=== PATIENT | female | born 1940 | race African-American/Black ===

== ENCOUNTER 2019-11-05 17:00 | Emergency (ER) | payer BC, MEDICAID ==
[~2019-11-05] VITALS: Ht 167.6 cm; Wt 90.0 kg
[2019-11-05 18:05] VITALS: BP 140/100
== END 2019-11-05 21:22 | disposition left against medical advice (07) ==
LOC: ER 17:00
DX: R51 Headache (principal); Z53.21 Procedure and treatment not carried out due to patient leaving prior to being seen by health care provider

== ENCOUNTER 2024-04-11 17:28 | Inpatient (IN) | payer MEDICARE, MEDICAID ==
[~2024-04-11] VITALS: Ht 160 cm; Wt 66.4 kg
[2024-04-11] MEDS: ONDANSETRON HCL 4MG/2ML INJ IV ONE (18:28)
[2024-04-11] MEDS: ACETAMINOPHEN 325MG TABLET PO ONE (18:28)
[2024-04-11 18:37] LABS: HEMATOCRIT. 28.8 % (36.0-48.0); HEMOGLOBIN. 9.5 g/dL (12.0-16.0); MEAN CORPUSCULAR HEMOGLOBIN 29.3 pg (28.0-32.0); MEAN CORPUSCULAR HGB CONC 32.8 g/dL (31.0-37.0); MEAN CORPUSCULAR VOLUME 89.5 fL (81.0-99.0); MEAN PLATELET VOLUME 8.9 fl (7.4-10.4); PLATELET 116 x1000/uL (130-400); RED BLOOD CELL COUNT 3.22 mill/uL (4.2-5.4); RED CELL DISTRIBUTION WIDTH 19.9 % (11.6-14.6); WHITE BLOOD COUNT 19.1 x1000/uL (4.5-11.0)
[2024-04-11 18:38] LABS: DIFFERENTIAL COMMENT 1
[2024-04-11 18:46] LABS: CHLORIDE 111 mEq/L (98-107); POTASSIUM 3.4 mEq/L (3.5-5.1); SODIUM 139 mEq/L (136-145)
[2024-04-11 18:47] LABS: CARBON DIOXIDE 16 mEq/L (21-32)
[2024-04-11 18:52] LABS: CREATININE 3.3 mg/dL (0.6-1.0); GLUCOSE 132 mg/dL (70-105); UREA NITROGEN BLOOD 52 mg/dL (9-23)
[2024-04-11 18:53] LABS: ALANINE AMINOTRANSFERASE < 7 IU/L (10-49); ASPARTATE AMINOTRANSFERASE 17 IU/L (<34); TROPONIN I HIGH SENSITIVITY 35 ng/L (3.0-34)
[2024-04-11 18:54] LABS: ALBUMIN 2.7 g/dL (3.2-4.8); BILIRUBIN TOTAL 0.3 mg/dL (0.1-1.0); PROTEIN TOTAL 6.2 g/dL (6.0-8.3)
[2024-04-11] MEDS ORDERED: LACTATED RINGERS 1,000 ML IV SCH (19:00)
[2024-04-11] MEDS: METRONIDAZOLE 500 MG PREMIX 100 ML IV ONE (19:00)
[2024-04-11] MEDS ORDERED: CEFEPIME 2GM IN DEXT 5% 100ML IV ONE (19:00)
[2024-04-11] MEDS: VANCOMYCIN 1.5GM/250ML 250 ML IV SCH (19:00)
[2024-04-11] MEDS ORDERED: CEFEPIME 2GM/100ML 100 ML IV NR (19:15)
[2024-04-11 19:31] LABS: ANISOCYTOSIS 1+; PLATELET ESTIMATE DECREASED
[2024-04-11] MEDS ORDERED: MORPHINE SULFATE 2 MG/ML INJ (NOT FOR IM USE) IV PRN (23:30)
[2024-04-11] MEDS: IOHEXOL-300 100 ML BOTTLE ONE (23:54)
[2024-04-12] MEDS: METRONIDAZOLE 500 MG PREMIX 100 ML IV NR (01:00)
[2024-04-12] MEDS: CEFEPIME 2GM/100ML 100 ML IV NR (01:00)
[2024-04-12 08:42] LABS: CLARITY URINE CLOUDY (CLEAR); COLOR URINE YELLOW (YELLOW); GLUCOSE URINE NEGATIVE (NEGATIVE); KETONES URINE NEGATIVE (NEGATIVE); LEUKOCYTE ESTERASE URINE TRACE (NEGATIVE); NITRITE URINE NEGATIVE (NEGATIVE); OCCULT BLOOD URINE 1+ (NEGATIVE); PH URINE 5.5 (4.5-8.0); PROTEIN URINE 3+ (NEGATIVE); SPECIFIC GRAVITY URINE 1.012 (1.005-1.030); UROBILINOGEN URINE 0.2 E.U./dL (0.2-1.0)
[2024-04-12 08:47] LABS: HEMATOCRIT. 25.4 % (36.0-48.0); HEMOGLOBIN. 8.1 g/dL (12.0-16.0); MEAN CORPUSCULAR HEMOGLOBIN 29.2 pg (28.0-32.0); MEAN CORPUSCULAR HGB CONC 32.1 g/dL (31.0-37.0); MEAN CORPUSCULAR VOLUME 91.2 fL (81.0-99.0); MEAN PLATELET VOLUME 8.9 fl (7.4-10.4); PLATELET 101 x1000/uL (130-400); RED BLOOD CELL COUNT 2.79 mill/uL (4.2-5.4); RED CELL DISTRIBUTION WIDTH 19.8 % (11.6-14.6); WHITE BLOOD COUNT 14.6 x1000/uL (4.5-11.0)
[2024-04-12 08:48] LABS: DIFFERENTIAL COMMENT 1
[2024-04-12 08:50] LABS: CHLORIDE 111 mEq/L (98-107); POTASSIUM 3.5 mEq/L (3.5-5.1); SODIUM 139 mEq/L (136-145)
[2024-04-12 08:51] LABS: CALCIUM 7.6 mg/dL (8.7-10.4); CARBON DIOXIDE 17 mEq/L (21-32)
[2024-04-12 08:53] LABS: WBC URINE 15-25 /hpf (0-2)
[2024-04-12 08:54] LABS: BACTERIA URINE 1+; YEAST URINE NONE SEEN
[2024-04-12 08:56] LABS: CREATININE 3.3 mg/dL (0.6-1.0); GLUCOSE 107 mg/dL (70-105); UREA NITROGEN BLOOD 52 mg/dL (9-23)
[2024-04-12 08:56] LABS: SQUAMOUS EPITHELIAL CELL URINE NONE SEEN /lpf (RARE/1+)
[2024-04-12 08:59] LABS: PHOSPHORUS 3.7 mg/dL (2.5-4.9)
[2024-04-12] MEDS: FAMOTIDINE 20MG/2ML VIAL IV SCH (09:00)
[2024-04-12] MEDS: CEFTRIAXONE 1GM/50ML 50 ML IV SCH (09:00)
[2024-04-12] MEDS: SODIUM BICARBONATE 100 MEQ in DEXTROSE 5% WATER 900 ML IV SCH ×3 (11:00→16:19)
[2024-04-12 11:17] LABS: ANISOCYTOSIS 2+; PLATELET ESTIMATE DECREASED
[2024-04-12 12:40] LABS: CREATINE KINASE 22 IU/L (34-145)
[2024-04-12 14:04] VITALS: BP 140/53; PULSE 107; RESP 22; TEMP 36.418
[2024-04-12] MEDS ORDERED: NALOXONE HCL 0.4MG/ML VIAL IV PRN (15:00)
[2024-04-12 15:37] VITALS: BP 140/53; PULSE 107; RESP 22; TEMP 36.33624; O2SAT 90
[2024-04-12 16:00] VITALS: BP 126/70; PULSE 73; RESP 18; TEMP 35.72508; O2SAT 90
[2024-04-12] MEDS: AZITHROMYCIN 500MG/250ML 250 ML IV SCH (16:22)
[2024-04-12 20:00] VITALS: BP 135/81; PULSE 111; RESP 16; TEMP 35.89176; O2SAT 93
[2024-04-12] MEDS ORDERED: CEFEPIME 1GM IN DEXT 5% 50ML IV SCH (20:00)
[2024-04-12] MEDS: CEFEPIME 1GM/50ML 50 ML IV SCH (22:05)
[2024-04-13] VITALS: BP 149/73; PULSE 102; RESP 17; TEMP 36.05844; O2SAT 100
[2024-04-13 08:00] VITALS: BP 137/67; PULSE 103; RESP 18; TEMP 36.05844
[2024-04-13] MEDS ORDERED: CEFTRIAXONE 1GM/50ML 50 ML IV SCH (09:00)
[2024-04-13 12:00] VITALS: BP 157/84; PULSE 105; RESP 20; TEMP 36.00288; O2SAT 80
[2024-04-13] MEDS: IPRATROPIUM/ALBUTEROL 0.5-3(2.5)MG/3ML NEB HHN ONE (12:00)
[2024-04-13 13:39] LABS: HEMOGLOBIN. 8.5 g/dL (12.0-16.0); MEAN CORPUSCULAR HEMOGLOBIN 29.5 pg (28.0-32.0); MEAN CORPUSCULAR HGB CONC 31.6 g/dL (31.0-37.0); MEAN CORPUSCULAR VOLUME 93.6 fL (81.0-99.0); MEAN PLATELET VOLUME 8.9 fl (7.4-10.4); PLATELET 91 x1000/uL (130-400); RED BLOOD CELL COUNT 2.88 mill/uL (4.2-5.4); RED CELL DISTRIBUTION WIDTH 20.6 % (11.6-14.6); WHITE BLOOD COUNT 12.8 x1000/uL (4.5-11.0)
[2024-04-13 13:44] LABS: DIFFERENTIAL COMMENT 1
[2024-04-13 13:46] LABS: CALCIUM 7.8 mg/dL (8.7-10.4); POTASSIUM 3.7 mEq/L (3.5-5.1)
[2024-04-13 13:52] LABS: CREATININE 3.7 mg/dL (0.6-1.0)
[2024-04-13] MEDS ORDERED: IPRATROPIUM BROMIDE (0.02%) 0.5MG/2.5ML NEB HHN PRN (14:30)
[2024-04-13 14:41] LABS: BG BASE EXCESS -5.9 mmol/L (-2.0-2.0); BG CARBOXYHEMOGLOBIN 0.6 % (0.5-1.5); BG HCO3 ACT 19.2 mmol/L (22.0-26.0); BG METHEMOGLOBIN 0.3 % (0.0-1.5); BG OXYHEMOGLOBIN 95.1 % (94.0-97.0); BG PCO2 36.4 mmHg (35.0-45.0); BG PH 7.341 (7.350-7.450); BG PO2 87.7 mmHg (75.0-100.0); BG SAMPLE SITE RIGHT RADIAL; BG TOTAL HEMOGLOBIN 8.7 g/dL (12.0-18.0); BG VENT MODE MASK - NRB
[2024-04-13 16:00] VITALS: BP 182/97; PULSE 97; RESP 22; TEMP 35.78064; TEMP 36.05844; O2SAT 100
[2024-04-13] MEDS: HYDRALAZINE 20MG/ML VIAL IV PRN (16:38)
[2024-04-13 16:57] LABS: ANISOCYTOSIS 1+; PLATELET ESTIMATE DECREASED
[2024-04-13] MEDS: ACETAMINOPHEN 650MG SUPP PR PRN (18:24)
[2024-04-13 20:00] VITALS: BP 138/86; PULSE 99; RESP 24; TEMP 37.16964; O2SAT 99
[2024-04-13] MEDS: IPRATROPIUM BROMIDE (0.02%) 0.5MG/2.5ML NEB HHN SCH (21:01)
[2024-04-13 21:04] VITALS: PULSE 89; RESP 22; O2SAT 98
[2024-04-14] VITALS (44 sets, daily range): BP systolic 84–170; BP diastolic 54–90; PULSE 77–94; RESP 13–28; TEMP 28.8912–36.9474; O2SAT 84–100
[2024-04-14 08:18] LABS: POTASSIUM 3.7 mEq/L (3.5-5.1)
[2024-04-14 08:19] LABS: CALCIUM 7.7 mg/dL (8.7-10.4)
[2024-04-14 08:20] LABS: HEMATOCRIT. 24.7 % (36.0-48.0); HEMOGLOBIN. 7.7 g/dL (12.0-16.0); MEAN CORPUSCULAR HEMOGLOBIN 29.6 pg (28.0-32.0); MEAN CORPUSCULAR HGB CONC 31.1 g/dL (31.0-37.0); MEAN PLATELET VOLUME 9.3 fl (7.4-10.4); PLATELET 78 x1000/uL (130-400); RED CELL DISTRIBUTION WIDTH 20.3 % (11.6-14.6); WHITE BLOOD COUNT 12.3 x1000/uL (4.5-11.0)
[2024-04-14 08:24] LABS: CREATININE 3.5 mg/dL (0.6-1.0)
[2024-04-14 08:32] LABS: DIFFERENTIAL COMMENT 1
[2024-04-14] MEDS: INSULIN LISPRO 100 UNITS/ML SUBCUT SCH (12:00)
[2024-04-14] MEDS: BLOOD SUGAR DIAGNOSTIC STRIP TEST SCH ×2 (12:00→21:45)
[2024-04-14] MEDS: FUROSEMIDE 40MG TABLET PO NR (12:03)
[2024-04-14] MEDS: FUROSEMIDE 40MG/4ML VIAL IV NR (12:11)
[2024-04-14 12:25] LABS: BG BASE EXCESS -0.3 mmol/L (-2.0-2.0); BG CARBOXYHEMOGLOBIN 0.7 % (0.5-1.5); BG DEOXYHEMOGLOBIN 4.5 % (0.0-5.0); BG FRACTION INSPIRED OXYGEN 28; BG HCO3 ACT 23.8 mmol/L (22.0-26.0); BG METHEMOGLOBIN 0.3 % (0.0-1.5); BG OXYGEN SATURATION 95.5 % (92.0-98.5); BG OXYHEMOGLOBIN 94.5 % (94.0-97.0); BG PCO2 37.4 mmHg (35.0-45.0); BG PH 7.421 (7.350-7.450); BG PO2 79.5 mmHg (75.0-100.0); BG SAMPLE SITE RIGHT RADIAL; BG TOTAL HEMOGLOBIN 16.1 g/dL (12.0-18.0); BG VENT MODE NASAL CANNULA
[2024-04-14 16:00] LABS: PLATELET ESTIMATE DECREASED
[2024-04-14 16:01] LABS: ANISOCYTOSIS 2+
[2024-04-14 19:37] LABS: BG BASE EXCESS -4.7 mmol/L (-2.0-2.0); BG CARBOXYHEMOGLOBIN 0.6 % (0.5-1.5); BG DEOXYHEMOGLOBIN 1.9 % (0.0-5.0); BG HCO3 ACT 21.5 mmol/L (22.0-26.0); BG METHEMOGLOBIN 0.3 % (0.0-1.5); BG OXYGEN SATURATION 98.1 % (92.0-98.5); BG OXYHEMOGLOBIN 97.2 % (94.0-97.0); BG PCO2 44.9 mmHg (35.0-45.0); BG PH 7.298 (7.350-7.450); BG PO2 115.1 mmHg (75.0-100.0); BG TOTAL HEMOGLOBIN 8.1 g/dL (12.0-18.0); BG TOTAL RESPIRATORY RATE 23 b/min; BG VENT MODE MASK - BIPAP
[2024-04-14] MEDS: IPRATROPIUM/ALBUTEROL 0.5-3(2.5)MG/3ML NEB HHN SCH (21:07)
[2024-04-15] VITALS (81 sets, daily range): BP systolic 82–184; BP diastolic 49–102; PULSE 86–118; RESP 14–34; TEMP 36.22512–36.78072; O2SAT 90–100
[2024-04-15] MEDS: NOREPINEPHRINE 8MG/250ML PMX 250 ML IV PRN (04:01)
[2024-04-15 05:47] LABS: POTASSIUM 3.6 mEq/L (3.5-5.1)
[2024-04-15 05:49] LABS: CALCIUM 7.7 mg/dL (8.7-10.4)
[2024-04-15 05:53] LABS: CREATININE 3.6 mg/dL (0.6-1.0)
[2024-04-15 09:19] LABS: BG BASE EXCESS -6.1 mmol/L (-2.0-2.0); BG CARBOXYHEMOGLOBIN 0.7 % (0.5-1.5); BG DEOXYHEMOGLOBIN 0.5 % (0.0-5.0); BG FRACTION INSPIRED OXYGEN 40; BG HCO3 ACT 18.7 mmol/L (22.0-26.0); BG METHEMOGLOBIN 0.2 % (0.0-1.5); BG OXYGEN SATURATION 99.5 % (92.0-98.5); BG OXYHEMOGLOBIN 98.6 % (94.0-97.0); BG PCO2 33.7 mmHg (35.0-45.0); BG PH 7.361 (7.350-7.450); BG PO2 175.8 mmHg (75.0-100.0); BG SAMPLE SITE RIGHT RADIAL; BG TOTAL HEMOGLOBIN 8.1 g/dL (12.0-18.0); BG TOTAL RESPIRATORY RATE 23 b/min; BG VENT MODE MASK - BIPAP
[2024-04-15 09:48] LABS: HEMATOCRIT. 22.3 % (36.0-48.0); HEMOGLOBIN. 7.3 g/dL (12.0-16.0); MEAN CORPUSCULAR HEMOGLOBIN 29.3 pg (28.0-32.0); MEAN CORPUSCULAR HGB CONC 32.8 g/dL (31.0-37.0); MEAN CORPUSCULAR VOLUME 89.2 fL (81.0-99.0); MEAN PLATELET VOLUME 9.8 fl (7.4-10.4); PLATELET 69 x1000/uL (130-400); RED CELL DISTRIBUTION WIDTH 19.4 % (11.6-14.6); WHITE BLOOD COUNT 13.6 x1000/uL (4.5-11.0)
[2024-04-15 09:53] LABS: DIFFERENTIAL COMMENT 1
[2024-04-15 10:58] LABS: ANISOCYTOSIS 1+; PLATELET ESTIMATE DECREASED
[2024-04-15] MEDS: DEXTROSE 50% WATER 50ML SYRINGE IV PRN (11:38)
[2024-04-15] MEDS: DEXTROSE 5% WATER 1,000 ML IV SCH (13:21)
[2024-04-15 13:27] LABS: ALBUMIN 2.7 g/dL (3.2-4.8)
[2024-04-15 13:36] LABS: PREALBUMIN < 5.0 mg/dl (10.0-40.0)
[2024-04-15] MEDS ORDERED: LIDOCAINE HCL 1% 10 MG/ML 10ML VIAL ONE (14:45)
[2024-04-15] MEDS ORDERED: ETOMIDATE 2MG/ML 10ML VIAL IV ONE (14:50)
[2024-04-15] MEDS: PROPOFOL 10MG/ML 100ML 100 ML IV PRN (17:06)
[2024-04-15 18:40] LABS: BG BASE EXCESS -0.5 mmol/L (-2.0-2.0); BG CARBOXYHEMOGLOBIN 0.6 % (0.5-1.5); BG DEOXYHEMOGLOBIN 0.2 % (0.0-5.0); BG FRACTION INSPIRED OXYGEN 100; BG HCO3 ACT 22.3 mmol/L (22.0-26.0); BG METHEMOGLOBIN 0.2 % (0.0-1.5); BG OXYGEN SATURATION 99.8 % (92.0-98.5); BG PCO2 28.9 mmHg (35.0-45.0); BG PH 7.506 (7.350-7.450); BG PO2 352.4 mmHg (75.0-100.0); BG SAMPLE SITE RIGHT RADIAL; BG TOTAL RESPIRATORY RATE 20 b/min
[2024-04-16] VITALS (100 sets, daily range): BP systolic 78–176; BP diastolic 43–107; PULSE 76–112; RESP 15–35; TEMP 35.8362–36.50292; O2SAT 55–100
[2024-04-16] MEDS: IPRATROPIUM BROMIDE (0.02%) 0.5MG/2.5ML NEB HHN SCH (00:12)
[2024-04-16 05:18] LABS: MEAN CORPUSCULAR HEMOGLOBIN 29.2 pg (28.0-32.0); MEAN CORPUSCULAR HGB CONC 33.3 g/dL (31.0-37.0); MEAN CORPUSCULAR VOLUME 87.8 fL (81.0-99.0); MEAN PLATELET VOLUME 9.8 fl (7.4-10.4); PLATELET 58 x1000/uL (130-400); RED BLOOD CELL COUNT 2.39 mill/uL (4.2-5.4); RED CELL DISTRIBUTION WIDTH 18.8 % (11.6-14.6); WHITE BLOOD COUNT 16.1 x1000/uL (4.5-11.0)
[2024-04-16 05:30] LABS: POTASSIUM 3.4 mEq/L (3.5-5.1)
[2024-04-16 05:31] LABS: CALCIUM 7.5 mg/dL (8.7-10.4)
[2024-04-16 05:35] LABS: CREATININE 3.6 mg/dL (0.6-1.0)
[2024-04-16 05:53] LABS: DIFFERENTIAL COMMENT 1
[2024-04-16] MEDS: KCL 20MEQ/100ML PREMIX 100 ML IV NR (09:28)
[2024-04-16] MEDS: MIDODRINE HCL 5MG TABLET PO SCH (09:29)
[2024-04-16 11:22] LABS: BG BASE EXCESS 0.6 mmol/L (-2.0-2.0); BG CARBOXYHEMOGLOBIN 0.9 % (0.5-1.5); BG DEOXYHEMOGLOBIN 1.7 % (0.0-5.0); BG FRACTION INSPIRED OXYGEN 65; BG HCO3 ACT 24.3 mmol/L (22.0-26.0); BG METHEMOGLOBIN 0.1 % (0.0-1.5); BG OXYGEN SATURATION 98.3 % (92.0-98.5); BG OXYHEMOGLOBIN 97.3 % (94.0-97.0); BG PCO2 34.2 mmHg (35.0-45.0); BG PH 7.469 (7.350-7.450); BG PO2 115.2 mmHg (75.0-100.0); BG SAMPLE SITE RIGHT RADIAL; BG TOTAL HEMOGLOBIN 6.4 g/dL (12.0-18.0); BG VENT MODE VENT - AC
[2024-04-16 12:52] LABS: HEPATITIS B SURFACE ANTIGEN NEGATIVE (Negative)
[2024-04-16 13:13] LABS: HEPATITIS A AB IGM NEGATIVE (Negative); HEPATITIS B CORE AB IGM NEGATIVE (Negative)
[2024-04-16 13:14] LABS: HEPATITIS C AB NON REACTIVE (Neg) (Negative)
[2024-04-16 15:29] LABS: ANISOCYTOSIS 2+; PLATELET ESTIMATE DECREASED
[2024-04-16] MEDS: ACETAMINOPHEN 650MG/20.3ML UDC GT PRN (20:41)
[2024-04-16] MEDS: PROPOFOL 10MG/ML 100ML 100 ML IV PRN (22:16)
[2024-04-17] VITALS (106 sets, daily range): BP systolic 87–188; BP diastolic 54–96; PULSE 72–100; RESP 12–31; TEMP 32.61372–37.05852; O2SAT 87–100
[2024-04-17 05:47] LABS: BASOPHILS % 0.2 % (0.0-2.0); EOSINOPHILS % 0.4 % (0.0-5.0); HEMATOCRIT. 23.8 % (36.0-48.0); HEMOGLOBIN. 7.8 g/dL (12.0-16.0); LYMPHOCYTES % 3.2 % (20.0-50.0); MEAN CORPUSCULAR HGB CONC 32.8 g/dL (31.0-37.0); MEAN CORPUSCULAR VOLUME 91.4 fL (81.0-99.0); MEAN PLATELET VOLUME 11.2 fl (7.4-10.4); MONOCYTES % 0.7 % (2.0-8.0); NEUTROPHILS % 95.5 % (40.0-76.0); WHITE BLOOD COUNT 10.4 x1000/uL (4.5-11.0)
[2024-04-17 05:56] LABS: CALCIUM 7.4 mg/dL (8.7-10.4); CHLORIDE 103 mEq/L (98-107); POTASSIUM 3.6 mEq/L (3.5-5.1); SODIUM 137 mEq/L (136-145)
[2024-04-17 05:57] LABS: CARBON DIOXIDE 24 mEq/L (21-32)
[2024-04-17 06:02] LABS: CREATININE 2.8 mg/dL (0.6-1.0); GLUCOSE 101 mg/dL (70-105)
[2024-04-17 06:03] LABS: TRIGLYCERIDE 82 mg/dL (0-150); UREA NITROGEN BLOOD 41 mg/dL (9-23)
[2024-04-17 06:41] LABS: DIFFERENTIAL COMMENT 1
[2024-04-17 06:44] LABS: PLATELET 42 x1000/uL (130-400)
[2024-04-17 07:50] LABS: BG BASE EXCESS -0.2 mmol/L (-2.0-2.0); BG CARBOXYHEMOGLOBIN 0.4 % (0.5-1.5); BG DEOXYHEMOGLOBIN 4.3 % (0.0-5.0); BG FRACTION INSPIRED OXYGEN 80; BG HCO3 ACT 24.4 mmol/L (22.0-26.0); BG METHEMOGLOBIN 0.3 % (0.0-1.5); BG OXYGEN SATURATION 95.7 % (92.0-98.5); BG PCO2 39.5 mmHg (35.0-45.0); BG PH 7.409 (7.350-7.450); BG PO2 73.9 mmHg (75.0-100.0); BG SAMPLE SITE RIGHT RADIAL; BG TOTAL HEMOGLOBIN 10.3 g/dL (12.0-18.0); BG VENT MODE VENT - AC/VC
[2024-04-17] MEDS ORDERED: MEROPENEM 500MG/50ML 50 ML IV SCH (09:00)
[2024-04-17] MEDS: MEROPENEM 1G/100ML 100 ML IV SCH (09:11)
[2024-04-17] MEDS: PROPOFOL 10MG/ML 100ML 100 ML IV PRN (20:02)
[2024-04-18] VITALS (112 sets, daily range): BP systolic 77–170; BP diastolic 45–87; PULSE 78–129; RESP 14–44; TEMP 35.8362–36.78072; O2SAT 88–100
[2024-04-18] MEDS: INSULIN LISPRO 100 UNITS/ML SUBCUT SCH (06:00)
[2024-04-18 06:29] LABS: CALCIUM 7.9 mg/dL (8.7-10.4); POTASSIUM 3.8 mEq/L (3.5-5.1)
[2024-04-18] MEDS: BLOOD SUGAR DIAGNOSTIC STRIP TEST SCH (06:30)
[2024-04-18 06:34] LABS: CREATININE 2.9 mg/dL (0.6-1.0)
[2024-04-18 06:35] LABS: BASOPHILS % 0.3 % (0.0-2.0); EOSINOPHILS % 0.1 % (0.0-5.0); HEMATOCRIT. 31.3 % (36.0-48.0); HEMOGLOBIN. 10.2 g/dL (12.0-16.0); LYMPHOCYTES % 2.6 % (20.0-50.0); MEAN CORPUSCULAR HEMOGLOBIN 29.1 pg (28.0-32.0); MEAN CORPUSCULAR HGB CONC 32.5 g/dL (31.0-37.0); MEAN CORPUSCULAR VOLUME 89.4 fL (81.0-99.0); MEAN PLATELET VOLUME 11.2 fl (7.4-10.4); MONOCYTES % 0.4 % (2.0-8.0); NEUTROPHILS % 96.6 % (40.0-76.0); RED CELL DISTRIBUTION WIDTH 17.5 % (11.6-14.6); WHITE BLOOD COUNT 14.1 x1000/uL (4.5-11.0)
[2024-04-18 06:46] LABS: DIFFERENTIAL COMMENT 1
[2024-04-18 06:48] LABS: PLATELET 36 x1000/uL (130-400)
[2024-04-18] MEDS: MEROPENEM 500MG/50ML IV SCH (11:02)
[2024-04-18] MEDS: PROPOFOL 10MG/ML 100ML 100 ML IV PRN (22:45)
[2024-04-19] VITALS (107 sets, daily range): BP systolic 103–173; BP diastolic 55–100; PULSE 83–123; RESP 0–36; TEMP 36.33624–37.05852; O2SAT 83–99
[2024-04-19 05:52] LABS: CHLORIDE 104 mEq/L (98-107); POTASSIUM 3.6 mEq/L (3.5-5.1); SODIUM 136 mEq/L (136-145)
[2024-04-19 05:53] LABS: CALCIUM 8.4 mg/dL (8.7-10.4); CARBON DIOXIDE 26 mEq/L (21-32)
[2024-04-19 05:57] LABS: BASOPHILS % 0.1 % (0.0-2.0); EOSINOPHILS % 0.1 % (0.0-5.0); HEMATOCRIT. 26.3 % (36.0-48.0); HEMOGLOBIN. 8.6 g/dL (12.0-16.0); LYMPHOCYTES % 1.7 % (20.0-50.0); MEAN CORPUSCULAR HEMOGLOBIN 29.4 pg (28.0-32.0); MEAN CORPUSCULAR HGB CONC 32.8 g/dL (31.0-37.0); MEAN CORPUSCULAR VOLUME 89.5 fL (81.0-99.0); MEAN PLATELET VOLUME 11.6 fl (7.4-10.4); MONOCYTES % 0.6 % (2.0-8.0); NEUTROPHILS % 97.5 % (40.0-76.0); RED BLOOD CELL COUNT 2.94 mill/uL (4.2-5.4); RED CELL DISTRIBUTION WIDTH 17.3 % (11.6-14.6); WHITE BLOOD COUNT 17.3 x1000/uL (4.5-11.0)
[2024-04-19 05:58] LABS: CREATININE 2.3 mg/dL (0.6-1.0); GLUCOSE 89 mg/dL (70-105); TRIGLYCERIDE 138 mg/dL (0-150); UREA NITROGEN BLOOD 34 mg/dL (9-23)
[2024-04-19 06:44] LABS: DIFFERENTIAL COMMENT 1
[2024-04-19 06:47] LABS: PLATELET 29 x1000/uL (130-400)
[2024-04-19] MEDS: MAGNESIUM 2 G PREMIX 50 ML IV SCH (08:25)
[2024-04-19] MEDS: METHYLPREDNISOLONE SOD SUCC 40MG/ML (ACT-O-VIAL) IV SCH (10:06)
[2024-04-20] VITALS (90 sets, daily range): BP systolic 133–178; BP diastolic 56–125; PULSE 94–115; RESP 15–30; TEMP 36.22512–37.05852; O2SAT 95–100
[2024-04-20] MEDS: PROPOFOL 10MG/ML 100ML 100 ML IV PRN (03:53)
[2024-04-20 06:08] LABS: HEMATOCRIT. 29.3 % (36.0-48.0); HEMOGLOBIN. 9.8 g/dL (12.0-16.0); MEAN CORPUSCULAR HEMOGLOBIN 29.7 pg (28.0-32.0); MEAN CORPUSCULAR HGB CONC 33.3 g/dL (31.0-37.0); MEAN CORPUSCULAR VOLUME 89.1 fL (81.0-99.0); MEAN PLATELET VOLUME 9.7 fl (7.4-10.4); RED BLOOD CELL COUNT 3.29 mill/uL (4.2-5.4); RED CELL DISTRIBUTION WIDTH 17.6 % (11.6-14.6); WHITE BLOOD COUNT 18.1 x1000/uL (4.5-11.0)
[2024-04-20 06:20] LABS: DIFFERENTIAL COMMENT 1; PLATELET 26 x1000/uL (130-400)
[2024-04-20 07:16] LABS: NUCLEATED RED BLOOD CELLS 2 /100 WBC; PLATELET ESTIMATE MARKEDLY DECREASED
[2024-04-20 07:17] LABS: ANISOCYTOSIS 2+
[2024-04-20 08:05] LABS: CHLORIDE 101 mEq/L (98-107); SODIUM 135 mEq/L (136-145)
[2024-04-20 08:06] LABS: CALCIUM 8.7 mg/dL (8.7-10.4); CARBON DIOXIDE 25 mEq/L (21-32)
[2024-04-20 08:11] LABS: CREATININE 2.6 mg/dL (0.6-1.0); GLUCOSE 88 mg/dL (70-105); TRIGLYCERIDE 149 mg/dL (0-150); UREA NITROGEN BLOOD 39 mg/dL (9-23)
[2024-04-20 08:13] LABS: PHOSPHORUS 2.3 mg/dL (2.5-4.9)
[2024-04-20] MEDS: DEXTROSE 10% WATER 250 ML IV SCH (11:02)
[2024-04-20 11:28] LABS: BG BASE EXCESS -0.3 mmol/L (-2.0-2.0); BG CARBOXYHEMOGLOBIN 0.7 % (0.5-1.5); BG DEOXYHEMOGLOBIN 3.3 % (0.0-5.0); BG FRACTION INSPIRED OXYGEN 70; BG HCO3 ACT 23.3 mmol/L (22.0-26.0); BG METHEMOGLOBIN 0.3 % (0.0-1.5); BG OXYGEN SATURATION 96.7 % (92.0-98.5); BG OXYHEMOGLOBIN 95.7 % (94.0-97.0); BG PH 7.454 (7.350-7.450); BG PO2 82.4 mmHg (75.0-100.0); BG SAMPLE SITE RIGHT RADIAL; BG TOTAL HEMOGLOBIN 9.3 g/dL (12.0-18.0); BG VENT MODE VENT - AC
[2024-04-21] VITALS (65 sets, daily range): BP systolic 80–226; BP diastolic 51–114; PULSE 56–109; RESP 0–30; TEMP 35.33616–36.83628; O2SAT 94–100
[2024-04-21] MEDS ORDERED: DEXT 10% WATER 1,000 ML IV SCH (02:00)
[2024-04-21] MEDS ORDERED: DEXMEDETOMIDINE 400 MCG/100 ML 100 ML IV PRN (05:30)
[2024-04-21 06:03] LABS: HEMATOCRIT. 27.8 % (36.0-48.0); HEMOGLOBIN. 9.1 g/dL (12.0-16.0); MEAN CORPUSCULAR HEMOGLOBIN 29.3 pg (28.0-32.0); MEAN CORPUSCULAR HGB CONC 32.7 g/dL (31.0-37.0); MEAN CORPUSCULAR VOLUME 89.6 fL (81.0-99.0); MEAN PLATELET VOLUME 10.3 fl (7.4-10.4); RED CELL DISTRIBUTION WIDTH 17.3 % (11.6-14.6)
[2024-04-21 06:13] LABS: POTASSIUM 3.6 mEq/L (3.5-5.1)
[2024-04-21 06:14] LABS: CALCIUM 8.7 mg/dL (8.7-10.4)
[2024-04-21 06:18] LABS: CREATININE 2.3 mg/dL (0.6-1.0)
[2024-04-21 06:21] LABS: PHOSPHORUS 2.2 mg/dL (2.5-4.9)
[2024-04-21] MEDS: DEXMEDETOMIDINE 400 MCG/100 ML 100 ML IV PRN (06:37)
[2024-04-21 06:52] LABS: DIFFERENTIAL COMMENT 1
[2024-04-21 06:54] LABS: PLATELET 20 x1000/uL (130-400)
[2024-04-21 11:13] LABS: NUCLEATED RED BLOOD CELLS 2 /100 WBC; PLATELET ESTIMATE MARKEDLY DECREASED
[2024-04-21 11:14] LABS: ANISOCYTOSIS 2+
[2024-04-21] MEDS: SODIUM PHOSPHATE 10 MMOL in DEXT 5% WATER 246.6667 ML IV NR (11:47)
[2024-04-21] MEDS: IPRATROPIUM BROMIDE (0.02%) 0.5MG/2.5ML NEB HHN SCH (12:20)
[2024-04-22] VITALS (117 sets, daily range): BP systolic 70–240; BP diastolic 53–134; PULSE 64–158; RESP 8–33; TEMP 36.114–36.89184; O2SAT 90–100
[2024-04-22 06:02] LABS: POTASSIUM 4.2 mEq/L (3.5-5.1)
[2024-04-22 06:03] LABS: CALCIUM 8.1 mg/dL (8.7-10.4)
[2024-04-22 06:08] LABS: CREATININE 2.4 mg/dL (0.6-1.0)
[2024-04-22 06:10] LABS: PHOSPHORUS 3.1 mg/dL (2.5-4.9)
[2024-04-22 07:36] LABS: BG BASE EXCESS -0.3 mmol/L (-2.0-2.0); BG CARBOXYHEMOGLOBIN 0.4 % (0.5-1.5); BG DEOXYHEMOGLOBIN 0.9 % (0.0-5.0); BG FRACTION INSPIRED OXYGEN 70; BG HCO3 ACT 23.7 mmol/L (22.0-26.0); BG METHEMOGLOBIN 0.3 % (0.0-1.5); BG OXYGEN SATURATION 99.1 % (92.0-98.5); BG OXYHEMOGLOBIN 98.4 % (94.0-97.0); BG PCO2 35.8 mmHg (35.0-45.0); BG PH 7.438 (7.350-7.450); BG PO2 146.3 mmHg (75.0-100.0); BG SAMPLE SITE RIGHT RADIAL; BG TOTAL HEMOGLOBIN 9.1 g/dL (12.0-18.0); BG VENT MODE VENT - AC
[2024-04-22] MEDS: LACTOBACILLUS GG CAPSULE GT SCH (08:35)
[2024-04-22] MEDS: AMLODIPINE 5MG TABLET PO SCH (08:35)
[2024-04-22 09:57] LABS: HEMATOCRIT. 26.1 % (36.0-48.0); HEMOGLOBIN. 8.3 g/dL (12.0-16.0); MEAN CORPUSCULAR HEMOGLOBIN 29.1 pg (28.0-32.0); MEAN CORPUSCULAR HGB CONC 31.7 g/dL (31.0-37.0); MEAN CORPUSCULAR VOLUME 91.6 fL (81.0-99.0); MEAN PLATELET VOLUME 10.8 fl (7.4-10.4); RED BLOOD CELL COUNT 2.85 mill/uL (4.2-5.4); RED CELL DISTRIBUTION WIDTH 17.2 % (11.6-14.6); WHITE BLOOD COUNT 16.7 x1000/uL (4.5-11.0)
[2024-04-22 10:01] LABS: DIFFERENTIAL COMMENT 1
[2024-04-22 10:02] LABS: PLATELET 12 x1000/uL (130-400)
[2024-04-22 11:09] LABS: ANISOCYTOSIS 1+; PLATELET ESTIMATE MARKEDLY DECREASED
[2024-04-23] VITALS (118 sets, daily range): BP systolic 98–205; BP diastolic 56–110; PULSE 74–123; RESP 12–33; TEMP 36.114–36.89184; O2SAT 86–100
[2024-04-23 05:56] LABS: HEMATOCRIT. 23.6 % (36.0-48.0); HEMOGLOBIN. 7.7 g/dL (12.0-16.0); MEAN CORPUSCULAR HEMOGLOBIN 29.3 pg (28.0-32.0); MEAN CORPUSCULAR HGB CONC 32.6 g/dL (31.0-37.0); MEAN PLATELET VOLUME 10.6 fl (7.4-10.4); RED BLOOD CELL COUNT 2.62 mill/uL (4.2-5.4); RED CELL DISTRIBUTION WIDTH 17.1 % (11.6-14.6); WHITE BLOOD COUNT 15.4 x1000/uL (4.5-11.0)
[2024-04-23 05:57] LABS: POTASSIUM 4.6 mEq/L (3.5-5.1)
[2024-04-23 05:59] LABS: CALCIUM 8.3 mg/dL (8.7-10.4)
[2024-04-23 06:03] LABS: CREATININE 2.4 mg/dL (0.6-1.0)
[2024-04-23 06:06] LABS: PHOSPHORUS 3.3 mg/dL (2.5-4.9)
[2024-04-23 06:10] LABS: DIFFERENTIAL COMMENT 1; PLATELET 11 x1000/uL (130-400)
[2024-04-23 09:07] LABS: BG BASE EXCESS -0.6 mmol/L (-2.0-2.0); BG DEOXYHEMOGLOBIN 5.5 % (0.0-5.0); BG FRACTION INSPIRED OXYGEN 50; BG HCO3 ACT 22.9 mmol/L (22.0-26.0); BG METHEMOGLOBIN 0.3 % (0.0-1.5); BG OXYGEN SATURATION 94.4 % (92.0-98.5); BG OXYHEMOGLOBIN 93.2 % (94.0-97.0); BG PCO2 32.6 mmHg (35.0-45.0); BG PH 7.464 (7.350-7.450); BG PO2 68.1 mmHg (75.0-100.0); BG SAMPLE SITE RIGHT RADIAL; BG TOTAL HEMOGLOBIN 8.7 g/dL (12.0-18.0); BG VENT MODE VENT - AC
[2024-04-23 16:57] LABS: ANISOCYTOSIS 1+; NUCLEATED RED BLOOD CELLS 3 /100 WBC; PLATELET ESTIMATE MARKEDLY DECREASED
[2024-04-24] VITALS (93 sets, daily range): BP systolic 105–173; BP diastolic 56–100; PULSE 76–132; RESP 0–33; TEMP 36.55848–37.503; O2SAT 90–100
[2024-04-24 03:34] LABS: BG BASE EXCESS -1.3 mmol/L (-2.0-2.0); BG CARBOXYHEMOGLOBIN 0.5 % (0.5-1.5); BG DEOXYHEMOGLOBIN 3.4 % (0.0-5.0); BG FRACTION INSPIRED OXYGEN 100; BG HCO3 ACT 24.4 mmol/L (22.0-26.0); BG METHEMOGLOBIN 0.3 % (0.0-1.5); BG OXYGEN SATURATION 96.6 % (92.0-98.5); BG OXYHEMOGLOBIN 95.8 % (94.0-97.0); BG PCO2 45.4 mmHg (35.0-45.0); BG PH 7.349 (7.350-7.450); BG PO2 86.3 mmHg (75.0-100.0); BG SAMPLE SITE LEFT RADIAL; BG TOTAL HEMOGLOBIN 11.3 g/dL (12.0-18.0); BG VENT MODE VENT - AC
[2024-04-24 04:42] LABS: HEMOGLOBIN 9.8 g/dL (12.0-16.0); MEAN CORPUSCULAR HEMOGLOBIN 29.3 pg (28.0-32.0); MEAN CORPUSCULAR HGB CONC 31.7 g/dL (31.0-37.0); MEAN CORPUSCULAR VOLUME 92.5 fL (81.0-99.0); PLATELET 66 x1000/uL (130-400); RED BLOOD CELL COUNT 3.36 mill/uL (4.2-5.4); RED CELL DISTRIBUTION WIDTH 16.3 % (11.6-14.6); WHITE BLOOD COUNT 20.1 x1000/uL (4.5-11.0)
[2024-04-24 04:48] LABS: CHLORIDE 104 mEq/L (98-107); POTASSIUM 5.1 mEq/L (3.5-5.1); SODIUM 138 mEq/L (136-145)
[2024-04-24 04:49] LABS: CALCIUM 8.2 mg/dL (8.7-10.4); CARBON DIOXIDE 24 mEq/L (21-32)
[2024-04-24 04:52] LABS: INR 1.2; PARTIAL THROMBOPLASTIN TIME 28.2 sec (23.4-31.0); PROTHROMBIN TIME 12.8 sec (9.6-11.0)
[2024-04-24 04:54] LABS: CREATININE 2.5 mg/dL (0.6-1.0); GLUCOSE 277 mg/dL (70-105); UREA NITROGEN BLOOD 60 mg/dL (9-23)
[2024-04-24 04:56] LABS: ALANINE AMINOTRANSFERASE < 7 IU/L (10-49); ALBUMIN 2.7 g/dL (3.2-4.8); ASPARTATE AMINOTRANSFERASE 37 IU/L (<34); BILIRUBIN TOTAL 0.3 mg/dL (0.1-1.0); PHOSPHORUS 4.6 mg/dL (2.5-4.9); PROTEIN TOTAL 5.6 g/dL (6.0-8.3)
[2024-04-24] MEDS: METHYLPREDNISOLONE SOD SUCC 125MG/2ML (ACT-O-VIAL) IV SCH (12:28)
[2024-04-24] MEDS: HYDRALAZINE HCL 50MG TABLET PO SCH (13:13)
[2024-04-24 21:34] LABS: BG BASE EXCESS -1.1 mmol/L (-2.0-2.0); BG CARBOXYHEMOGLOBIN 0.4 % (0.5-1.5); BG DEOXYHEMOGLOBIN 7.5 % (0.0-5.0); BG FRACTION INSPIRED OXYGEN 80; BG METHEMOGLOBIN 0.3 % (0.0-1.5); BG OXYGEN SATURATION 92.4 % (92.0-98.5); BG OXYHEMOGLOBIN 91.8 % (94.0-97.0); BG PCO2 41.8 mmHg (35.0-45.0); BG PH 7.377 (7.350-7.450); BG PO2 63.4 mmHg (75.0-100.0); BG SAMPLE SITE LEFT RADIAL; BG TOTAL HEMOGLOBIN 10.2 g/dL (12.0-18.0); BG VENT MODE VENT - AC
[2024-04-24] MEDS ORDERED: FENTANYL 2500MCG/250ML PMX 250 ML IV ONE (23:15)
[2024-04-24] MEDS: LORAZEPAM 2MG/ML INJ IV PRN (23:19)
[2024-04-24] MEDS: FENTANYL CITRATE 2,500 MCG in SODIUM CHLORIDE 0.9% 200 ML IV PRN (23:29)
[2024-04-25] VITALS (107 sets, daily range): BP systolic 86–141; BP diastolic 52–90; PULSE 64–86; RESP 12–31; TEMP 36.114–37.05852; O2SAT 98–100
[2024-04-25 06:36] LABS: POTASSIUM 5.8 mEq/L (3.5-5.1)
[2024-04-25 06:37] LABS: CALCIUM 7.6 mg/dL (8.7-10.4)
[2024-04-25 06:41] LABS: CREATININE 2.6 mg/dL (0.6-1.0)
[2024-04-25 07:05] LABS: HEMATOCRIT 26.5 % (36.0-48.0); HEMOGLOBIN 8.4 g/dL (12.0-16.0); MEAN CORPUSCULAR HEMOGLOBIN 29.3 pg (28.0-32.0); MEAN CORPUSCULAR HGB CONC 31.7 g/dL (31.0-37.0); MEAN CORPUSCULAR VOLUME 92.6 fL (81.0-99.0); RED BLOOD CELL COUNT 2.86 mill/uL (4.2-5.4); RED CELL DISTRIBUTION WIDTH 16.3 % (11.6-14.6); WHITE BLOOD COUNT 15.3 x1000/uL (4.5-11.0)
[2024-04-25 08:39] LABS: BG BASE EXCESS -4.6 mmol/L (-2.0-2.0); BG CARBOXYHEMOGLOBIN 0.7 % (0.5-1.5); BG DEOXYHEMOGLOBIN 0.7 % (0.0-5.0); BG FRACTION INSPIRED OXYGEN 100; BG METHEMOGLOBIN 0.1 % (0.0-1.5); BG OXYGEN SATURATION 99.3 % (92.0-98.5); BG OXYHEMOGLOBIN 98.5 % (94.0-97.0); BG PCO2 47.4 mmHg (35.0-45.0); BG PH 7.284 (7.350-7.450); BG PO2 198.3 mmHg (75.0-100.0); BG SAMPLE SITE RIGHT RADIAL; BG TOTAL HEMOGLOBIN 9.2 g/dL (12.0-18.0); BG TOTAL RESPIRATORY RATE 17 b/min; BG VENT MODE VENT - AC
[2024-04-26] VITALS (73 sets, daily range): BP systolic 96–159; BP diastolic 54–113; PULSE 65–117; RESP 0–31; TEMP 33.8916–36.3918; O2SAT 95–100
[2024-04-26 05:06] LABS: HEMATOCRIT. 27.7 % (36.0-48.0); HEMOGLOBIN. 8.8 g/dL (12.0-16.0); MEAN CORPUSCULAR HEMOGLOBIN 29.6 pg (28.0-32.0); MEAN CORPUSCULAR HGB CONC 31.6 g/dL (31.0-37.0); MEAN CORPUSCULAR VOLUME 93.7 fL (81.0-99.0); MEAN PLATELET VOLUME 9.3 fl (7.4-10.4); RED BLOOD CELL COUNT 2.96 mill/uL (4.2-5.4); RED CELL DISTRIBUTION WIDTH 16.6 % (11.6-14.6); WHITE BLOOD COUNT 14.5 x1000/uL (4.5-11.0)
[2024-04-26 05:16] LABS: POTASSIUM 4.8 mEq/L (3.5-5.1)
[2024-04-26 05:18] LABS: CALCIUM 8.4 mg/dL (8.7-10.4)
[2024-04-26 05:22] LABS: CREATININE 2.1 mg/dL (0.6-1.0)
[2024-04-26 05:27] LABS: DIFFERENTIAL COMMENT 1
[2024-04-26 08:55] LABS: BG BASE EXCESS -3.4 mmol/L (-2.0-2.0); BG CARBOXYHEMOGLOBIN 0.8 % (0.5-1.5); BG DEOXYHEMOGLOBIN 0.5 % (0.0-5.0); BG FRACTION INSPIRED OXYGEN 100; BG HCO3 ACT 21.8 mmol/L (22.0-26.0); BG METHEMOGLOBIN 0.3 % (0.0-1.5); BG OXYGEN SATURATION 99.5 % (92.0-98.5); BG OXYHEMOGLOBIN 98.4 % (94.0-97.0); BG PCO2 39.7 mmHg (35.0-45.0); BG PH 7.357 (7.350-7.450); BG PO2 172.7 mmHg (75.0-100.0); BG SAMPLE SITE RIGHT RADIAL; BG TOTAL HEMOGLOBIN 9.3 g/dL (12.0-18.0); BG TOTAL RESPIRATORY RATE 20 b/min; BG VENT MODE VENT - P/C
[2024-04-26 13:40] LABS: ANISOCYTOSIS 1+; GIANT PLATELETS FEW; PLATELET ESTIMATE MARKEDLY DECREASED
[2024-04-26 13:41] LABS: PLATELET 19 x1000/uL (130-400)
[2024-04-27] VITALS (87 sets, daily range): BP systolic 46–187; BP diastolic 31–91; PULSE 97–143; RESP 15–31; TEMP 36.3918–36.6696; O2SAT 99–100
[2024-04-27 08:20] LABS: HEMATOCRIT. 24.9 % (36.0-48.0); HEMOGLOBIN. 8.1 g/dL (12.0-16.0); MEAN CORPUSCULAR HEMOGLOBIN 29.7 pg (28.0-32.0); MEAN CORPUSCULAR HGB CONC 32.8 g/dL (31.0-37.0); MEAN CORPUSCULAR VOLUME 90.7 fL (81.0-99.0); RED BLOOD CELL COUNT 2.74 mill/uL (4.2-5.4); RED CELL DISTRIBUTION WIDTH 15.7 % (11.6-14.6); WHITE BLOOD COUNT 17.5 x1000/uL (4.5-11.0)
[2024-04-27 08:31] LABS: CALCIUM 7.8 mg/dL (8.7-10.4)
[2024-04-27 08:36] LABS: CREATININE 2.4 mg/dL (0.6-1.0)
[2024-04-27 08:52] LABS: DIFFERENTIAL COMMENT 1
[2024-04-27 09:54] LABS: BG BASE EXCESS -2.4 mmol/L (-2.0-2.0); BG CARBOXYHEMOGLOBIN 0.7 % (0.5-1.5); BG DEOXYHEMOGLOBIN 0.7 % (0.0-5.0); BG FRACTION INSPIRED OXYGEN 80; BG HCO3 ACT 21.2 mmol/L (22.0-26.0); BG METHEMOGLOBIN 0.3 % (0.0-1.5); BG OXYGEN SATURATION 99.3 % (92.0-98.5); BG OXYHEMOGLOBIN 98.3 % (94.0-97.0); BG PCO2 31.5 mmHg (35.0-45.0); BG PH 7.445 (7.350-7.450); BG PO2 201.2 mmHg (75.0-100.0); BG SAMPLE SITE RIGHT RADIAL; BG TOTAL HEMOGLOBIN 8.3 g/dL (12.0-18.0); BG VENT MODE VENT - P/C
[2024-04-27] MEDS ORDERED: DESMOPRESSIN ACETATE 4MCG/ML AMP IV ONE (10:45)
[2024-04-27] MEDS: TRANEXAMIC ACID 1,000MG/10ML IV NR (11:48)
[2024-04-27] MEDS: DESMOPRESSIN ACETATE 20 MCG in SODIUM CHLORIDE 0.9% 50 ML IV SCH (12:01)
[2024-04-27 12:11] LABS: NUCLEATED RED BLOOD CELLS 2 /100 WBC
[2024-04-27 12:16] LABS: ANISOCYTOSIS 1+; PLATELET ESTIMATE MARKEDLY DECREASED
[2024-04-27 12:18] LABS: MEAN PLATELET VOLUME 8.4 fl (7.4-10.4); PLATELET 20 x1000/uL (130-400)
[2024-04-27 15:52] LABS: MEAN CORPUSCULAR HEMOGLOBIN 29.4 pg (28.0-32.0); MEAN CORPUSCULAR HGB CONC 32.1 g/dL (31.0-37.0); MEAN CORPUSCULAR VOLUME 91.4 fL (81.0-99.0); RED BLOOD CELL COUNT 2.14 mill/uL (4.2-5.4); RED CELL DISTRIBUTION WIDTH 16.3 % (11.6-14.6); WHITE BLOOD COUNT 15.2 x1000/uL (4.5-11.0)
[2024-04-27 15:59] LABS: HEMOGLOBIN 6.3 g/dL (12.0-16.0)
[2024-04-27 16:00] LABS: HEMATOCRIT 19.5 % (36.0-48.0); INR 1.2; PLATELET 18 x1000/uL (130-400)
[2024-04-27] MEDS ORDERED: METOPROLOL TARTRATE 5MG/5ML VIAL IV PRN (21:30)
[2024-04-27] MEDS: METOPROLOL TARTRATE 25MG TABLET GT SCH (21:36)
[2024-04-27 23:38] LABS: HEMATOCRIT 24.7 % (36.0-48.0); HEMOGLOBIN 8.2 g/dL (12.0-16.0)
[2024-04-28] VITALS (75 sets, daily range): BP systolic 118–203; BP diastolic 58–107; PULSE 87–116; RESP 13–26; TEMP 36.44736–37.05852; O2SAT 94–100
[2024-04-28 06:28] LABS: CHLORIDE 103 mEq/L (98-107); POTASSIUM 4.4 mEq/L (3.5-5.1); SODIUM 137 mEq/L (136-145)
[2024-04-28 06:29] LABS: CALCIUM 7.7 mg/dL (8.7-10.4); CARBON DIOXIDE 24 mEq/L (21-32)
[2024-04-28 06:31] LABS: HEMATOCRIT. 24.3 % (36.0-48.0); INR 1.2; MEAN CORPUSCULAR HEMOGLOBIN 30.2 pg (28.0-32.0); MEAN CORPUSCULAR HGB CONC 33.1 g/dL (31.0-37.0); MEAN CORPUSCULAR VOLUME 91.1 fL (81.0-99.0); PLATELET 67 x1000/uL (130-400); PROTHROMBIN TIME 12.9 sec (9.6-11.0); RED BLOOD CELL COUNT 2.66 mill/uL (4.2-5.4); RED CELL DISTRIBUTION WIDTH 15.1 % (11.6-14.6); WHITE BLOOD COUNT 14.7 x1000/uL (4.5-11.0)
[2024-04-28 06:34] LABS: CREATININE 2.1 mg/dL (0.6-1.0); GLUCOSE 241 mg/dL (70-105); UREA NITROGEN BLOOD 66 mg/dL (9-23)
[2024-04-28 06:36] LABS: PHOSPHORUS 5.2 mg/dL (2.5-4.9)
[2024-04-28 07:05] LABS: BG BASE EXCESS 0.2 mmol/L (-2.0-2.0); BG CARBOXYHEMOGLOBIN 0.2 % (0.5-1.5); BG DEOXYHEMOGLOBIN 1.5 % (0.0-5.0); BG FRACTION INSPIRED OXYGEN 60; BG HCO3 ACT 23.1 mmol/L (22.0-26.0); BG METHEMOGLOBIN 0.3 % (0.0-1.5); BG OXYGEN SATURATION 98.5 % (92.0-98.5); BG PCO2 30.6 mmHg (35.0-45.0); BG PH 7.495 (7.350-7.450); BG PO2 114.6 mmHg (75.0-100.0); BG SAMPLE SITE RIGHT RADIAL; BG VENT MODE VENT - AC/PC
[2024-04-28 07:55] LABS: DIFFERENTIAL COMMENT 1
[2024-04-28 13:27] LABS: NUCLEATED RED BLOOD CELLS 1 /100 WBC
[2024-04-28 13:28] LABS: ANISOCYTOSIS 1+; PLATELET ESTIMATE DECREASED
[2024-04-29] VITALS (60 sets, daily range): BP systolic 58–189; BP diastolic 39–101; PULSE 87–145; RESP 13–33; TEMP 36.3918–37.05852; O2SAT 86–100
[2024-04-29 05:29] LABS: HEMATOCRIT. 24.3 % (36.0-48.0); HEMOGLOBIN. 7.9 g/dL (12.0-16.0); MEAN CORPUSCULAR HEMOGLOBIN 29.7 pg (28.0-32.0); MEAN CORPUSCULAR HGB CONC 32.4 g/dL (31.0-37.0); MEAN CORPUSCULAR VOLUME 91.5 fL (81.0-99.0); MEAN PLATELET VOLUME 8.4 fl (7.4-10.4); RED BLOOD CELL COUNT 2.66 mill/uL (4.2-5.4); RED CELL DISTRIBUTION WIDTH 15.6 % (11.6-14.6); WHITE BLOOD COUNT 14.4 x1000/uL (4.5-11.0)
[2024-04-29 05:39] LABS: POTASSIUM 4.5 mEq/L (3.5-5.1)
[2024-04-29 05:40] LABS: CALCIUM 7.4 mg/dL (8.7-10.4)
[2024-04-29 05:45] LABS: CREATININE 2.4 mg/dL (0.6-1.0)
[2024-04-29 06:55] LABS: DIFFERENTIAL COMMENT 1
[2024-04-29 06:58] LABS: PLATELET 40 x1000/uL (130-400)
[2024-04-29] MEDS: MEROPENEM 500MG/50ML 50 ML IV SCH (08:21)
[2024-04-29] MEDS: METHYLPREDNISOLONE SOD SUCC 40MG/ML (ACT-O-VIAL) IV SCH (13:04)
[2024-04-29 14:24] LABS: ANISOCYTOSIS 1+; PLATELET ESTIMATE DECREASED
[2024-04-29 19:17] LABS: PLATELET 25 x1000/uL (130-400)
[2024-04-30] VITALS (39 sets, daily range): BP systolic 133–172; BP diastolic 65–101; PULSE 77–101; RESP 16–35; TEMP 36.114–37.11408; O2SAT 88–96
[2024-04-30 05:17] LABS: HEMATOCRIT. 23.7 % (36.0-48.0); HEMOGLOBIN. 7.8 g/dL (12.0-16.0); MEAN CORPUSCULAR HGB CONC 33.1 g/dL (31.0-37.0); MEAN CORPUSCULAR VOLUME 90.8 fL (81.0-99.0); MEAN PLATELET VOLUME 9.2 fl (7.4-10.4); RED BLOOD CELL COUNT 2.61 mill/uL (4.2-5.4); RED CELL DISTRIBUTION WIDTH 15.6 % (11.6-14.6); WHITE BLOOD COUNT 12.8 x1000/uL (4.5-11.0)
[2024-04-30 05:21] LABS: POTASSIUM 3.8 mEq/L (3.5-5.1)
[2024-04-30 05:23] LABS: CALCIUM 7.8 mg/dL (8.7-10.4)
[2024-04-30 05:28] LABS: CREATININE 2.1 mg/dL (0.6-1.0)
[2024-04-30 05:58] LABS: DIFFERENTIAL COMMENT 1
[2024-04-30 10:31] LABS: ANISOCYTOSIS 1+; NUCLEATED RED BLOOD CELLS 4 /100 WBC; PLATELET ESTIMATE MARKEDLY DECREASED
[2024-04-30 10:32] LABS: PLATELET 34 x1000/uL (130-400)
[2024-05-01] VITALS (96 sets, daily range): BP systolic 69–144; BP diastolic 42–97; PULSE 70–95; RESP 19–43; TEMP 33.94716–36.55848; O2SAT 87–100
[2024-05-01 05:59] LABS: CHLORIDE 103 mEq/L (98-107); INR 1.1; POTASSIUM 3.5 mEq/L (3.5-5.1); PROTHROMBIN TIME 12.3 sec (9.6-11.0); SODIUM 136 mEq/L (136-145)
[2024-05-01 06:00] LABS: CALCIUM 7.6 mg/dL (8.7-10.4); CARBON DIOXIDE 23 mEq/L (21-32)
[2024-05-01 06:05] LABS: CREATININE 2.2 mg/dL (0.6-1.0); GLUCOSE 241 mg/dL (70-105); HEMATOCRIT. 23.2 % (36.0-48.0); HEMOGLOBIN. 7.7 g/dL (12.0-16.0); MEAN CORPUSCULAR HEMOGLOBIN 30.7 pg (28.0-32.0); MEAN CORPUSCULAR HGB CONC 33.3 g/dL (31.0-37.0); MEAN CORPUSCULAR VOLUME 92.1 fL (81.0-99.0); MEAN PLATELET VOLUME 8.4 fl (7.4-10.4); RED BLOOD CELL COUNT 2.52 mill/uL (4.2-5.4); RED CELL DISTRIBUTION WIDTH 15.5 % (11.6-14.6); UREA NITROGEN BLOOD 73 mg/dL (9-23); WHITE BLOOD COUNT 10.9 x1000/uL (4.5-11.0)
[2024-05-01 06:08] LABS: PHOSPHORUS 4.9 mg/dL (2.5-4.9)
[2024-05-01 06:52] LABS: DIFFERENTIAL COMMENT 1; PLATELET 20 x1000/uL (130-400)
[2024-05-01 08:13] LABS: BG DEOXYHEMOGLOBIN 3.6 % (0.0-5.0); BG FRACTION INSPIRED OXYGEN 80; BG HCO3 ACT 20.9 mmol/L (22.0-26.0); BG METHEMOGLOBIN 0.3 % (0.0-1.5); BG OXYGEN SATURATION 96.4 % (92.0-98.5); BG OXYHEMOGLOBIN 95.1 % (94.0-97.0); BG PCO2 37.4 mmHg (35.0-45.0); BG PH 7.366 (7.350-7.450); BG PO2 89.1 mmHg (75.0-100.0); BG SAMPLE SITE RIGHT RADIAL; BG TOTAL HEMOGLOBIN 7.7 g/dL (12.0-18.0); BG VENT MODE AC/PC
[2024-05-01 15:53] LABS: PLATELET ESTIMATE MARKEDLY DECREASED
[2024-05-01] MEDS: PHENYLEPHRINE 100 MG in DEXT 5% WATER 240 ML IV PRN (18:37)
[2024-05-02] VITALS (80 sets, daily range): BP systolic 93–144; BP diastolic 44–79; PULSE 92–118; RESP 27–38; TEMP 34.33608–37.33632; O2SAT 93–99
[2024-05-02 05:53] LABS: POTASSIUM 3.6 mEq/L (3.5-5.1)
[2024-05-02 05:54] LABS: CALCIUM 7.7 mg/dL (8.7-10.4)
[2024-05-02 05:56] LABS: MEAN CORPUSCULAR HEMOGLOBIN 30.8 pg (28.0-32.0); MEAN CORPUSCULAR HGB CONC 33.7 g/dL (31.0-37.0); MEAN CORPUSCULAR VOLUME 91.4 fL (81.0-99.0); RED BLOOD CELL COUNT 2.17 mill/uL (4.2-5.4); RED CELL DISTRIBUTION WIDTH 15.7 % (11.6-14.6)
[2024-05-02 07:39] LABS: DIFFERENTIAL COMMENT 1
[2024-05-02 07:46] LABS: HEMATOCRIT. 19.9 % (36.0-48.0); HEMOGLOBIN. 6.7 g/dL (12.0-16.0); PLATELET 50 x1000/uL (130-400)
[2024-05-02 08:49] LABS: BG BASE EXCESS -1.7 mmol/L (-2.0-2.0); BG CARBOXYHEMOGLOBIN 0.6 % (0.5-1.5); BG DEOXYHEMOGLOBIN 1.6 % (0.0-5.0); BG FRACTION INSPIRED OXYGEN 90; BG HCO3 ACT 22.9 mmol/L (22.0-26.0); BG METHEMOGLOBIN 0.4 % (0.0-1.5); BG OXYGEN SATURATION 98.4 % (92.0-98.5); BG OXYHEMOGLOBIN 97.4 % (94.0-97.0); BG PCO2 37.6 mmHg (35.0-45.0); BG PH 7.403 (7.350-7.450); BG PO2 109.2 mmHg (75.0-100.0); BG SAMPLE SITE RIGHT RADIAL; BG TOTAL HEMOGLOBIN 6.5 g/dL (12.0-18.0); BG VENT MODE VENT - P/C
[2024-05-02 16:05] LABS: ANISOCYTOSIS 2+; PLATELET ESTIMATE MARKEDLY DECREASED
[2024-05-03] VITALS (88 sets, daily range): BP systolic 84–147; BP diastolic 48–79; PULSE 80–97; RESP 18–33; TEMP 33.16932–36.44736; O2SAT 91–98
[2024-05-03 05:46] LABS: CALCIUM 7.9 mg/dL (8.7-10.4); CHLORIDE 107 mEq/L (98-107); POTASSIUM 3.6 mEq/L (3.5-5.1); SODIUM 143 mEq/L (136-145)
[2024-05-03 05:47] LABS: CARBON DIOXIDE 24 mEq/L (21-32)
[2024-05-03 05:52] LABS: GLUCOSE 229 mg/dL (70-105); UREA NITROGEN BLOOD 67 mg/dL (9-23)
[2024-05-03 05:54] LABS: PHOSPHORUS 4.4 mg/dL (2.5-4.9)
[2024-05-03 05:56] LABS: HEMATOCRIT. 26.6 % (36.0-48.0); HEMOGLOBIN. 8.9 g/dL (12.0-16.0); MEAN CORPUSCULAR HEMOGLOBIN 30.4 pg (28.0-32.0); MEAN CORPUSCULAR HGB CONC 33.4 g/dL (31.0-37.0); MEAN CORPUSCULAR VOLUME 91.1 fL (81.0-99.0); MEAN PLATELET VOLUME 9.9 fl (7.4-10.4); RED BLOOD CELL COUNT 2.92 mill/uL (4.2-5.4); RED CELL DISTRIBUTION WIDTH 14.9 % (11.6-14.6); WHITE BLOOD COUNT 14.7 x1000/uL (4.5-11.0)
[2024-05-03 07:52] LABS: DIFFERENTIAL COMMENT 1
[2024-05-03 16:49] LABS: PLATELET 42 x1000/uL (130-400); PLATELET ESTIMATE MARKEDLY DECREASED
[2024-05-04] VITALS (54 sets, daily range): BP systolic 101–155; BP diastolic 59–90; PULSE 86–109; RESP 19–33; TEMP 34.78056–37.16964; O2SAT 92–97
[2024-05-04 06:32] LABS: LACTATE DEHYDROGENASE 669 IU/L (120-246)
[2024-05-04 08:59] LABS: POTASSIUM 3.7 mEq/L (3.5-5.1)
[2024-05-04 09:01] LABS: CALCIUM 8.3 mg/dL (8.7-10.4)
[2024-05-04 09:05] LABS: CREATININE 1.6 mg/dL (0.6-1.0)
[2024-05-04 09:11] LABS: HEMATOCRIT. 24.5 % (36.0-48.0); HEMOGLOBIN. 8.2 g/dL (12.0-16.0); MEAN CORPUSCULAR HEMOGLOBIN 30.6 pg (28.0-32.0); MEAN CORPUSCULAR HGB CONC 33.3 g/dL (31.0-37.0); MEAN CORPUSCULAR VOLUME 91.8 fL (81.0-99.0); MEAN PLATELET VOLUME 9.6 fl (7.4-10.4); RED BLOOD CELL COUNT 2.67 mill/uL (4.2-5.4); RED CELL DISTRIBUTION WIDTH 15.8 % (11.6-14.6); WHITE BLOOD COUNT 16.2 x1000/uL (4.5-11.0)
[2024-05-04 09:29] LABS: DIFFERENTIAL COMMENT 1; PLATELET 40 x1000/uL (130-400)
[2024-05-04 11:23] LABS: ANISOCYTOSIS 1+; PLATELET ESTIMATE MARKEDLY DECREASED
[2024-05-04] MEDS ORDERED: ACETAMINOPHEN 650MG/20.3ML UDC PO PRN (23:00)
[2024-05-04] MEDS ORDERED: ACETAMINOPHEN 650MG/20.3ML UDC GT PRN (23:15)
[2024-05-04] MEDS ORDERED: FENTANYL 2500MCG/250ML PMX 250 ML IV PRN (23:15)
[2024-05-04] MEDS: FENTANYL CITRATE 2,500 MCG in SODIUM CHLORIDE 0.9% 200 ML IV PRN (23:29)
[2024-05-05] VITALS (81 sets, daily range): BP systolic 69–159; BP diastolic 41–80; PULSE 79–111; RESP 17–36; TEMP 34.28052–36.9474; O2SAT 91–100
[2024-05-05 04:15] LABS: HEMATOCRIT. 25.3 % (36.0-48.0); HEMOGLOBIN. 8.5 g/dL (12.0-16.0); MEAN CORPUSCULAR HEMOGLOBIN 30.6 pg (28.0-32.0); MEAN CORPUSCULAR HGB CONC 33.7 g/dL (31.0-37.0); MEAN CORPUSCULAR VOLUME 90.9 fL (81.0-99.0); MEAN PLATELET VOLUME 10.1 fl (7.4-10.4); RED BLOOD CELL COUNT 2.78 mill/uL (4.2-5.4); RED CELL DISTRIBUTION WIDTH 15.5 % (11.6-14.6); WHITE BLOOD COUNT 16.9 x1000/uL (4.5-11.0)
[2024-05-05 04:27] LABS: DIFFERENTIAL COMMENT 1
[2024-05-05 04:28] LABS: PLATELET 35 x1000/uL (130-400)
[2024-05-05 05:10] LABS: POTASSIUM 3.9 mEq/L (3.5-5.1)
[2024-05-05 05:12] LABS: CALCIUM 8.4 mg/dL (8.7-10.4)
[2024-05-05 05:16] LABS: CREATININE 1.7 mg/dL (0.6-1.0)
[2024-05-05 09:12] LABS: PLATELET ESTIMATE MARKEDLY DECREASED
[2024-05-05 09:13] LABS: ANISOCYTOSIS 1+
[2024-05-06] VITALS (94 sets, daily range): BP systolic 70–151; BP diastolic 49–78; PULSE 82–111; RESP 16–33; TEMP 35.66952–36.72516; O2SAT 92–100
[2024-05-06 05:44] LABS: HEMATOCRIT. 26.2 % (36.0-48.0); HEMOGLOBIN. 8.4 g/dL (12.0-16.0); MEAN CORPUSCULAR HEMOGLOBIN 30.3 pg (28.0-32.0); MEAN CORPUSCULAR HGB CONC 32.3 g/dL (31.0-37.0); MEAN CORPUSCULAR VOLUME 93.9 fL (81.0-99.0); MEAN PLATELET VOLUME 9.8 fl (7.4-10.4); RED BLOOD CELL COUNT 2.78 mill/uL (4.2-5.4); RED CELL DISTRIBUTION WIDTH 16.1 % (11.6-14.6); WHITE BLOOD COUNT 19.9 x1000/uL (4.5-11.0)
[2024-05-06 05:48] LABS: POTASSIUM 4.1 mEq/L (3.5-5.1)
[2024-05-06 05:50] LABS: CALCIUM 8.5 mg/dL (8.7-10.4)
[2024-05-06 05:54] LABS: CREATININE 1.9 mg/dL (0.6-1.0)
[2024-05-06 06:47] LABS: DIFFERENTIAL COMMENT 1; PLATELET 36 x1000/uL (130-400)
[2024-05-06] MEDS: MEROPENEM 500MG/50ML 50 ML IV SCH (08:21)
[2024-05-06] MEDS ORDERED: DESMOPRESSIN ACETATE 4MCG/ML AMP ONE (09:44)
[2024-05-06] MEDS ORDERED: ROCURONIUM BROMIDE 10MG/ML VIAL 5ML IV ONE ×2 (10:20→10:42)
[2024-05-06] MEDS ORDERED: FENTANYL CITRATE/PF 50MCG/ML 2ML VIAL ONE (10:32)
[2024-05-06 19:17] LABS: PLATELET ESTIMATE DECREASED
[2024-05-07] VITALS (104 sets, daily range): BP systolic 88–194; BP diastolic 53–122; PULSE 90–125; RESP 17–36; TEMP 35.78064–36.78072; O2SAT 90–99
[2024-05-07 05:57] LABS: HEMATOCRIT. 24.5 % (36.0-48.0); MEAN CORPUSCULAR HEMOGLOBIN 30.6 pg (28.0-32.0); MEAN CORPUSCULAR HGB CONC 32.6 g/dL (31.0-37.0); MEAN CORPUSCULAR VOLUME 93.8 fL (81.0-99.0); MEAN PLATELET VOLUME 10.5 fl (7.4-10.4); RED BLOOD CELL COUNT 2.61 mill/uL (4.2-5.4); RED CELL DISTRIBUTION WIDTH 16.2 % (11.6-14.6); WHITE BLOOD COUNT 20.7 x1000/uL (4.5-11.0)
[2024-05-07 06:01] LABS: CALCIUM 8.4 mg/dL (8.7-10.4); POTASSIUM 4.5 mEq/L (3.5-5.1)
[2024-05-07 06:06] LABS: CREATININE 2.1 mg/dL (0.6-1.0)
[2024-05-07 07:41] LABS: DIFFERENTIAL COMMENT 1
[2024-05-07 07:42] LABS: PLATELET 31 x1000/uL (130-400)
[2024-05-07] MEDS: MIDODRINE HCL 5MG TABLET PO SCH (13:01)
[2024-05-07 13:07] LABS: BG BASE EXCESS -3.7 mmol/L (-2.0-2.0); BG CARBOXYHEMOGLOBIN 0.1 % (0.5-1.5); BG DEOXYHEMOGLOBIN 1.3 % (0.0-5.0); BG FRACTION INSPIRED OXYGEN 80; BG HCO3 ACT 23.8 mmol/L (22.0-26.0); BG METHEMOGLOBIN 0.3 % (0.0-1.5); BG OXYGEN SATURATION 98.7 % (92.0-98.5); BG OXYHEMOGLOBIN 98.3 % (94.0-97.0); BG PCO2 55.8 mmHg (35.0-45.0); BG PH 7.248 (7.350-7.450); BG SAMPLE SITE RIGHT RADIAL; BG TOTAL HEMOGLOBIN 9.7 g/dL (12.0-18.0); BG VENT MODE VENT - P/C
[2024-05-07 17:36] LABS: ANISOCYTOSIS 1+; PLATELET ESTIMATE MARKEDLY DECREASED
[2024-05-08] VITALS (54 sets, daily range): BP systolic 127–175; BP diastolic 71–109; PULSE 100–108; RESP 18–30; TEMP 36.114–36.78072; O2SAT 91–99
[2024-05-08 05:38] LABS: HEMATOCRIT. 23.1 % (36.0-48.0); HEMOGLOBIN. 7.6 g/dL (12.0-16.0); MEAN CORPUSCULAR HEMOGLOBIN 30.3 pg (28.0-32.0); MEAN CORPUSCULAR HGB CONC 33.1 g/dL (31.0-37.0); MEAN CORPUSCULAR VOLUME 91.5 fL (81.0-99.0); MEAN PLATELET VOLUME 10.2 fl (7.4-10.4); RED BLOOD CELL COUNT 2.52 mill/uL (4.2-5.4); RED CELL DISTRIBUTION WIDTH 15.4 % (11.6-14.6); WHITE BLOOD COUNT 22.5 x1000/uL (4.5-11.0)
[2024-05-08 05:48] LABS: POTASSIUM 3.7 mEq/L (3.5-5.1)
[2024-05-08 05:49] LABS: CALCIUM 8.2 mg/dL (8.7-10.4)
[2024-05-08 05:54] LABS: CREATININE 1.8 mg/dL (0.6-1.0)
[2024-05-08 08:25] LABS: BG BASE EXCESS -3.8 mmol/L (-2.0-2.0); BG CARBOXYHEMOGLOBIN 1.2 % (0.5-1.5); BG DEOXYHEMOGLOBIN 1.1 % (0.0-5.0); BG FRACTION INSPIRED OXYGEN 80; BG HCO3 ACT 20.8 mmol/L (22.0-26.0); BG METHEMOGLOBIN 0.3 % (0.0-1.5); BG OXYGEN SATURATION 98.9 % (92.0-98.5); BG OXYHEMOGLOBIN 97.4 % (94.0-97.0); BG PCO2 35.8 mmHg (35.0-45.0); BG PH 7.383 (7.350-7.450); BG PO2 117.6 mmHg (75.0-100.0); BG SAMPLE SITE RIGHT RADIAL; BG TOTAL HEMOGLOBIN 7.7 g/dL (12.0-18.0); BG VENT MODE VENT - AC/PC
[2024-05-08 09:51] LABS: PLATELET ESTIMATE MARKEDLY DECREASED
[2024-05-08 09:59] LABS: ANISOCYTOSIS 1+
[2024-05-08 10:03] LABS: DIFFERENTIAL COMMENT 1
[2024-05-08 10:06] LABS: PLATELET 38 x1000/uL (130-400)
[2024-05-09] VITALS (101 sets, daily range): BP systolic 72–184; BP diastolic 47–113; PULSE 78–138; RESP 15–28; TEMP 36.16956–36.55848; O2SAT 93–100
[2024-05-10] VITALS (108 sets, daily range): BP systolic 74–134; BP diastolic 44–69; PULSE 87–116; RESP 16–29; TEMP 36.00288–37.16964; O2SAT 93–100
[2024-05-10] MEDS: MEROPENEM 500MG/50ML 50 ML IV SCH (08:08)
[2024-05-10 09:11] LABS: BG BASE EXCESS -5.8 mmol/L (-2.0-2.0); BG CARBOXYHEMOGLOBIN 0.3 % (0.5-1.5); BG DEOXYHEMOGLOBIN 2.2 % (0.0-5.0); BG FRACTION INSPIRED OXYGEN 80; BG HCO3 ACT 23.1 mmol/L (22.0-26.0); BG OXYGEN SATURATION 97.8 % (92.0-98.5); BG OXYHEMOGLOBIN 97.5 % (94.0-97.0); BG PCO2 66.7 mmHg (35.0-45.0); BG PH 7.157 (7.350-7.450); BG PO2 110.7 mmHg (75.0-100.0); BG SAMPLE SITE RIGHT RADIAL; BG TOTAL HEMOGLOBIN 8.8 g/dL (12.0-18.0); BG VENT MODE VENT - AC/PC
[2024-05-11] VITALS (125 sets, daily range): BP systolic 65–161; BP diastolic 14–81; PULSE 90–157; RESP 14–36; TEMP 36.114–36.89184; O2SAT 88–100
[2024-05-11 06:11] LABS: HEMATOCRIT. 23.7 % (36.0-48.0); HEMOGLOBIN. 7.7 g/dL (12.0-16.0); MEAN CORPUSCULAR HEMOGLOBIN 31.3 pg (28.0-32.0); MEAN CORPUSCULAR HGB CONC 32.4 g/dL (31.0-37.0); MEAN CORPUSCULAR VOLUME 96.6 fL (81.0-99.0); PLATELET 52 x1000/uL (130-400); RED BLOOD CELL COUNT 2.45 mill/uL (4.2-5.4); RED CELL DISTRIBUTION WIDTH 17.2 % (11.6-14.6); WHITE BLOOD COUNT 21.2 x1000/uL (4.5-11.0)
[2024-05-11 06:16] LABS: POTASSIUM 3.9 mEq/L (3.5-5.1)
[2024-05-11 06:18] LABS: CALCIUM 7.9 mg/dL (8.7-10.4)
[2024-05-11 06:43] LABS: DIFFERENTIAL COMMENT 1
[2024-05-11 09:07] LABS: BG CARBOXYHEMOGLOBIN 1.1 % (0.5-1.5); BG DEOXYHEMOGLOBIN 10.8 % (0.0-5.0); BG FRACTION INSPIRED OXYGEN 75; BG HCO3 ACT 22.4 mmol/L (22.0-26.0); BG METHEMOGLOBIN 0.3 % (0.0-1.5); BG OXYHEMOGLOBIN 87.8 % (94.0-97.0); BG PCO2 70.4 mmHg (35.0-45.0); BG PO2 59.6 mmHg (75.0-100.0); BG SAMPLE SITE RIGHT RADIAL; BG TOTAL HEMOGLOBIN 8.4 g/dL (12.0-18.0); BG VENT MODE VENT - P/C
[2024-05-11 11:04] LABS: ANISOCYTOSIS 1+; PLATELET ESTIMATE DECREASED
[2024-05-12] VITALS (102 sets, daily range): BP systolic 93–169; BP diastolic 24–90; PULSE 103–117; RESP 0–43; TEMP 36.16956–37.28076; O2SAT 86–100
[2024-05-12 05:36] LABS: HEMATOCRIT. 22.8 % (36.0-48.0); HEMOGLOBIN. 7.5 g/dL (12.0-16.0); MEAN CORPUSCULAR VOLUME 94.1 fL (81.0-99.0); MEAN PLATELET VOLUME 10.5 fl (7.4-10.4); RED BLOOD CELL COUNT 2.43 mill/uL (4.2-5.4); RED CELL DISTRIBUTION WIDTH 16.3 % (11.6-14.6); WHITE BLOOD COUNT 23.2 x1000/uL (4.5-11.0)
[2024-05-12 05:37] LABS: POTASSIUM 4.2 mEq/L (3.5-5.1)
[2024-05-12 05:38] LABS: CALCIUM 8.5 mg/dL (8.7-10.4)
[2024-05-12 05:43] LABS: CREATININE 1.5 mg/dL (0.6-1.0)
[2024-05-12 07:01] LABS: DIFFERENTIAL COMMENT 1; PLATELET 43 x1000/uL (130-400)
[2024-05-12 10:03] LABS: BG BASE EXCESS -4.1 mmol/L (-2.0-2.0); BG CARBOXYHEMOGLOBIN 1.6 % (0.5-1.5); BG DEOXYHEMOGLOBIN 1.1 % (0.0-5.0); BG FRACTION INSPIRED OXYGEN 90; BG HCO3 ACT 25.1 mmol/L (22.0-26.0); BG METHEMOGLOBIN 0.2 % (0.0-1.5); BG OXYGEN SATURATION 98.9 % (92.0-98.5); BG OXYHEMOGLOBIN 97.1 % (94.0-97.0); BG PCO2 75.4 mmHg (35.0-45.0); BG PH 7.141 (7.350-7.450); BG PO2 163.4 mmHg (75.0-100.0); BG SAMPLE SITE RIGHT RADIAL; BG TOTAL HEMOGLOBIN 8.1 g/dL (12.0-18.0); BG VENT MODE VENT - P/C
[2024-05-12] MEDS: IPRATROPIUM/ALBUTEROL 0.5-3(2.5)MG/3ML NEB HHN SCH (12:27)
[2024-05-12 16:09] LABS: ANISOCYTOSIS 1+; NUCLEATED RED BLOOD CELLS 3 /100 WBC; PLATELET ESTIMATE MARKEDLY DECREASED
[2024-05-13] VITALS (109 sets, daily range): BP systolic 54–174; BP diastolic 11–93; PULSE 95–138; RESP 0–39; TEMP 34.83612–36.61404; O2SAT 55–100
[2024-05-13 05:50] LABS: HEMATOCRIT. 22.5 % (36.0-48.0); HEMOGLOBIN. 7.2 g/dL (12.0-16.0); MEAN CORPUSCULAR HGB CONC 31.9 g/dL (31.0-37.0); MEAN PLATELET VOLUME 10.9 fl (7.4-10.4); PLATELET 53 x1000/uL (130-400); RED BLOOD CELL COUNT 2.32 mill/uL (4.2-5.4); RED CELL DISTRIBUTION WIDTH 16.7 % (11.6-14.6); WHITE BLOOD COUNT 22.6 x1000/uL (4.5-11.0)
[2024-05-13 06:16] LABS: POTASSIUM 4.3 mEq/L (3.5-5.1)
[2024-05-13 06:17] LABS: CALCIUM 8.5 mg/dL (8.7-10.4)
[2024-05-13 06:22] LABS: CREATININE 1.8 mg/dL (0.6-1.0)
[2024-05-13 07:08] LABS: DIFFERENTIAL COMMENT 1
[2024-05-13 09:55] LABS: ANISOCYTOSIS 1+; NUCLEATED RED BLOOD CELLS 2 /100 WBC; PLATELET ESTIMATE MARKEDLY DECREASED
[2024-05-13 10:53] LABS: BG BASE EXCESS -5.7 mmol/L (-2.0-2.0); BG CARBOXYHEMOGLOBIN 1.8 % (0.5-1.5); BG DEOXYHEMOGLOBIN 9.1 % (0.0-5.0); BG FRACTION INSPIRED OXYGEN 90; BG HCO3 ACT 25.7 mmol/L (22.0-26.0); BG METHEMOGLOBIN 0.1 % (0.0-1.5); BG OXYGEN SATURATION 90.7 % (92.0-98.5); BG PCO2 101.9 mmHg (35.0-45.0); BG PH 7.019 (7.350-7.450); BG PO2 67.5 mmHg (75.0-100.0); BG SAMPLE SITE RIGHT RADIAL; BG VENT MODE VENT - AC/PC
[2024-05-13] MEDS: NOREPINEPHRINE 8MG/250ML PMX 250 ML IV PRN (13:06)
[2024-05-13 13:13] LABS: BG BASE EXCESS -6.8 mmol/L (-2.0-2.0); BG CARBOXYHEMOGLOBIN 1.4 % (0.5-1.5); BG DEOXYHEMOGLOBIN 8.1 % (0.0-5.0); BG FRACTION INSPIRED OXYGEN 100; BG HCO3 ACT 23.2 mmol/L (22.0-26.0); BG METHEMOGLOBIN 0.1 % (0.0-1.5); BG OXYGEN SATURATION 91.8 % (92.0-98.5); BG OXYHEMOGLOBIN 90.4 % (94.0-97.0); BG PH 7.081 (7.350-7.450); BG PO2 67.2 mmHg (75.0-100.0); BG SAMPLE SITE RIGHT RADIAL; BG TOTAL HEMOGLOBIN 7.9 g/dL (12.0-18.0); BG VENT MODE VENT - AC/PC
[2024-05-14] VITALS (108 sets, daily range): BP systolic 68–180; BP diastolic 16–111; PULSE 94–116; RESP 0–39; TEMP 36.00288–36.33624; O2SAT 98–100
[2024-05-14 06:19] LABS: HEMATOCRIT 22.9 % (36.0-48.0); HEMOGLOBIN 7.2 g/dL (12.0-16.0); MEAN CORPUSCULAR HEMOGLOBIN 30.3 pg (28.0-32.0); MEAN CORPUSCULAR HGB CONC 31.4 g/dL (31.0-37.0); MEAN CORPUSCULAR VOLUME 96.5 fL (81.0-99.0); PLATELET 51 x1000/uL (130-400); RED BLOOD CELL COUNT 2.38 mill/uL (4.2-5.4); RED CELL DISTRIBUTION WIDTH 16.3 % (11.6-14.6); WHITE BLOOD COUNT 19.6 x1000/uL (4.5-11.0)
[2024-05-14 06:26] LABS: POTASSIUM 4.4 mEq/L (3.5-5.1)
[2024-05-14 06:28] LABS: CALCIUM 8.5 mg/dL (8.7-10.4)
[2024-05-14 07:34] LABS: BG BASE EXCESS -4.9 mmol/L (-2.0-3.0); BG CARBOXYHEMOGLOBIN 1.2 % (0.5-1.5); BG DEOXYHEMOGLOBIN 0.9 % (0.0-5.0); BG HCO3 ACT 24.1 mmol/L (21.0-28.0); BG METHEMOGLOBIN 0.1 % (0.5-1.5); BG OXYGEN SATURATION 99.1 % (94.0-98.0); BG OXYHEMOGLOBIN 97.8 % (94.0-98.0); BG PCO2 70.3 mmHg (32.0-45.0); BG PH 7.153 (7.350-7.450); BG PO2 154.7 mmHg (83.0-108.0); BG SAMPLE SITE RIGHT RADIAL; BG TOTAL HEMOGLOBIN 8.5 g/dL (12.0-16.0); BG VENT MODE VENT - P/C
[2024-05-14] MEDS ORDERED: BLOOD SUGAR DIAGNOSTIC STRIP TEST PRN (08:15)
[2024-05-14] MEDS ORDERED: DEXTROSE 50% WATER 50ML SYRINGE IV PRN (08:15)
[2024-05-14] MEDS: BLOOD SUGAR DIAGNOSTIC STRIP TEST SCH ×3 (08:15→20:00)
[2024-05-14] MEDS ORDERED: INSULIN REGULAR 100U/100ML PMX 100 ML IV PRN (08:30)
[2024-05-14] MEDS: INSULIN GLARGINE 100 UNITS/ML SUBCUT SCH ×2 (09:37→21:26)
[2024-05-14] MEDS ORDERED: INSULIN GLARGINE 100 UNITS/ML SUBCUT SCH ×2 (10:00→22:00)
[2024-05-14] MEDS: INSULIN LISPRO 100 UNITS/ML SUBCUT NR (13:16)
[2024-05-14] MEDS: INSULIN GLARGINE 100 UNITS/ML SUBCUT NR (13:18)
[2024-05-14] MEDS: INSULIN LISPRO 100 UNITS/ML SUBCUT SCH (13:19)
[2024-05-14] MEDS ORDERED: INSULIN LISPRO 100 UNITS/ML SUBCUT PRN (18:20)
[2024-05-15] VITALS (105 sets, daily range): BP systolic 70–161; BP diastolic 39–97; PULSE 85–110; RESP 0–42; TEMP 34.22496–36.22512; O2SAT 97–100
[2024-05-15 05:37] LABS: POTASSIUM 3.5 mEq/L (3.5-5.1)
[2024-05-15 05:39] LABS: CALCIUM 8.7 mg/dL (8.7-10.4)
[2024-05-15 05:59] LABS: BASOPHILS % 0.4 % (0.0-2.0); HEMATOCRIT. 22.3 % (36.0-48.0); HEMOGLOBIN. 7.1 g/dL (12.0-16.0); LYMPHOCYTES % 0.8 % (20.0-50.0); MEAN CORPUSCULAR HEMOGLOBIN 30.7 pg (28.0-32.0); MEAN CORPUSCULAR HGB CONC 31.9 g/dL (31.0-37.0); MEAN CORPUSCULAR VOLUME 96.3 fL (81.0-99.0); MEAN PLATELET VOLUME 10.7 fl (7.4-10.4); MONOCYTES % 1.7 % (2.0-8.0); NEUTROPHILS % 97.1 % (40.0-76.0); RED BLOOD CELL COUNT 2.32 mill/uL (4.2-5.4); RED CELL DISTRIBUTION WIDTH 16.2 % (11.6-14.6); WHITE BLOOD COUNT 19.5 x1000/uL (4.5-11.0)
[2024-05-15 06:39] LABS: DIFFERENTIAL COMMENT 1
[2024-05-15 06:40] LABS: PLATELET 39 x1000/uL (130-400)
[2024-05-15 08:30] LABS: BG BASE EXCESS -8.8 mmol/L (-2.0-3.0); BG CARBOXYHEMOGLOBIN 1.4 % (0.5-1.5); BG DEOXYHEMOGLOBIN 0.4 % (0.0-5.0); BG FRACTION INSPIRED OXYGEN 80; BG HCO3 ACT 19.7 mmol/L (21.0-28.0); BG METHEMOGLOBIN 0.3 % (0.5-1.5); BG OXYGEN SATURATION 99.6 % (94.0-98.0); BG OXYHEMOGLOBIN 97.9 % (94.0-98.0); BG PCO2 59.3 mmHg (32.0-45.0); BG PO2 165.8 mmHg (83.0-108.0); BG SAMPLE SITE RIGHT RADIAL; BG TOTAL HEMOGLOBIN 7.6 g/dL (12.0-16.0); BG VENT MODE VENT - AC/PC
[2024-05-15] MEDS: FAMOTIDINE 20MG/2ML VIAL IV SCH (09:08)
[2024-05-15] MEDS: DEXTROSE 50% WATER 50ML SYRINGE IV PRN (21:06)
[2024-05-16] VITALS (99 sets, daily range): BP systolic 75–145; BP diastolic 51–82; PULSE 90–110; RESP 9–46; TEMP 35.94732–36.89184; O2SAT 87–100
[2024-05-16 06:15] LABS: BASOPHILS % 0.2 % (0.0-2.0); MEAN CORPUSCULAR HEMOGLOBIN 30.4 pg (28.0-32.0); MEAN CORPUSCULAR HGB CONC 32.4 g/dL (31.0-37.0); MEAN PLATELET VOLUME 10.7 fl (7.4-10.4); MONOCYTES % 1.4 % (2.0-8.0); NEUTROPHILS % 97.4 % (40.0-76.0); POTASSIUM 3.7 mEq/L (3.5-5.1); RED BLOOD CELL COUNT 2.23 mill/uL (4.2-5.4); WHITE BLOOD COUNT 18.9 x1000/uL (4.5-11.0)
[2024-05-16 06:16] LABS: CALCIUM 8.5 mg/dL (8.7-10.4)
[2024-05-16 06:19] LABS: CREATININE 1.4 mg/dL (0.6-1.0)
[2024-05-16 06:52] LABS: DIFFERENTIAL COMMENT 1
[2024-05-16 07:13] LABS: HEMATOCRIT. 20.9 % (36.0-48.0); HEMOGLOBIN. 6.8 g/dL (12.0-16.0); PLATELET 40 x1000/uL (130-400)
[2024-05-16 09:16] LABS: BG CARBOXYHEMOGLOBIN 1.6 % (0.5-1.5); BG DEOXYHEMOGLOBIN 1.7 % (0.0-5.0); BG FRACTION INSPIRED OXYGEN 70; BG HCO3 ACT 25.6 mmol/L (21.0-28.0); BG METHEMOGLOBIN 0.3 % (0.5-1.5); BG OXYGEN SATURATION 98.3 % (94.0-98.0); BG OXYHEMOGLOBIN 96.4 % (94.0-98.0); BG PCO2 72.2 mmHg (32.0-45.0); BG PH 7.168 (7.350-7.450); BG PO2 108.6 mmHg (83.0-108.0); BG SAMPLE SITE RIGHT RADIAL; BG TOTAL HEMOGLOBIN 7.2 g/dL (12.0-16.0); BG VENT MODE VENT - P/C
[2024-05-16] MEDS: DEXT 10% WATER 1,000 ML IV SCH (12:26)
[2024-05-16 15:59] LABS: BG BASE EXCESS -7.3 mmol/L (-2.0-3.0); BG CARBOXYHEMOGLOBIN 0.8 % (0.5-1.5); BG DEOXYHEMOGLOBIN 0.2 % (0.0-5.0); BG FRACTION INSPIRED OXYGEN 90; BG HCO3 ACT 22.5 mmol/L (21.0-28.0); BG METHEMOGLOBIN 0.3 % (0.5-1.5); BG OXYGEN SATURATION 99.8 % (94.0-98.0); BG OXYHEMOGLOBIN 98.7 % (94.0-98.0); BG PCO2 73.8 mmHg (32.0-45.0); BG PH 7.102 (7.350-7.450); BG PO2 252.1 mmHg (83.0-108.0); BG SAMPLE SITE RIGHT RADIAL; BG TOTAL HEMOGLOBIN 8.9 g/dL (12.0-16.0); BG VENT MODE VENT - P/C
[2024-05-16] MEDS: DEXTROSE 10% WATER 1000ML IV SCH (20:24)
[2024-05-16 22:14] LABS: HEMATOCRIT 29.1 % (36.0-48.0); HEMOGLOBIN 9.6 g/dL (12.0-16.0)
[2024-05-16 22:22] LABS: PROTHROMBIN TIME 11.5 sec (9.6-11.0)
[2024-05-17] VITALS (92 sets, daily range): BP systolic 68–160; BP diastolic 50–95; PULSE 100–118; RESP 0–40; TEMP 35.5584–37.72524; O2SAT 88–100
[2024-05-17 06:05] LABS: HEMATOCRIT. 28.2 % (36.0-48.0); HEMOGLOBIN. 9.1 g/dL (12.0-16.0); MEAN CORPUSCULAR HEMOGLOBIN 30.4 pg (28.0-32.0); MEAN CORPUSCULAR HGB CONC 32.4 g/dL (31.0-37.0); MEAN CORPUSCULAR VOLUME 93.8 fL (81.0-99.0); MEAN PLATELET VOLUME 10.2 fl (7.4-10.4); RED BLOOD CELL COUNT 3.01 mill/uL (4.2-5.4); RED CELL DISTRIBUTION WIDTH 15.6 % (11.6-14.6); WHITE BLOOD COUNT 17.5 x1000/uL (4.5-11.0)
[2024-05-17 06:08] LABS: CALCIUM 8.1 mg/dL (8.7-10.4)
[2024-05-17 06:13] LABS: CREATININE 1.6 mg/dL (0.6-1.0)
[2024-05-17 07:24] LABS: DIFFERENTIAL COMMENT 1
[2024-05-17] MEDS: PANTOPRAZOLE SODIUM 40 MG/VIAL IV SCH (09:09)
[2024-05-17 12:50] LABS: BG BASE EXCESS -1.6 mmol/L (-2.0-3.0); BG CARBOXYHEMOGLOBIN 1.6 % (0.5-1.5); BG DEOXYHEMOGLOBIN 5.1 % (0.0-5.0); BG FRACTION INSPIRED OXYGEN 65; BG METHEMOGLOBIN 0.3 % (0.5-1.5); BG OXYGEN SATURATION 94.8 % (94.0-98.0); BG PCO2 59.4 mmHg (32.0-45.0); BG PH 7.259 (7.350-7.450); BG PO2 71.1 mmHg (83.0-108.0); BG SAMPLE SITE RIGHT RADIAL; BG VENT MODE VENT - P/C
[2024-05-17 15:29] LABS: ANISOCYTOSIS 1+; NUCLEATED RED BLOOD CELLS 1 /100 WBC; PLATELET 28 x1000/uL (130-400); PLATELET ESTIMATE MARKEDLY DECREASED
[2024-05-17] MEDS ORDERED: MIDAZOLAM 100MG/100ML PMX 100 ML IV PRN (17:15)
[2024-05-18] VITALS (112 sets, daily range): BP systolic 100–157; BP diastolic 53–122; PULSE 100–119; RESP 17–36; TEMP 36.22512–37.05852; O2SAT 10–100
[2024-05-18 05:54] LABS: HEMATOCRIT. 25.4 % (36.0-48.0); HEMOGLOBIN. 8.6 g/dL (12.0-16.0); MEAN CORPUSCULAR HEMOGLOBIN 30.7 pg (28.0-32.0); MEAN CORPUSCULAR HGB CONC 33.9 g/dL (31.0-37.0); MEAN CORPUSCULAR VOLUME 90.7 fL (81.0-99.0); RED CELL DISTRIBUTION WIDTH 15.3 % (11.6-14.6); WHITE BLOOD COUNT 12.7 x1000/uL (4.5-11.0)
[2024-05-18 05:56] LABS: POTASSIUM 3.5 mEq/L (3.5-5.1)
[2024-05-18 05:57] LABS: CALCIUM 7.8 mg/dL (8.7-10.4)
[2024-05-18 06:02] LABS: CREATININE 1.3 mg/dL (0.6-1.0)
[2024-05-18 06:41] LABS: DIFFERENTIAL COMMENT 1; PLATELET 26 x1000/uL (130-400)
[2024-05-18 11:10] LABS: ANISOCYTOSIS 1+; PLATELET ESTIMATE MARKEDLY DECREASED
[2024-05-18 13:36] LABS: BG BASE EXCESS -3.2 mmol/L (-2.0-3.0); BG CARBOXYHEMOGLOBIN 0.8 % (0.5-1.5); BG DEOXYHEMOGLOBIN 5.3 % (0.0-5.0); BG FRACTION INSPIRED OXYGEN 70; BG HCO3 ACT 23.9 mmol/L (21.0-28.0); BG METHEMOGLOBIN 0.3 % (0.5-1.5); BG OXYGEN SATURATION 94.6 % (94.0-98.0); BG OXYHEMOGLOBIN 93.6 % (94.0-98.0); BG PCO2 53.5 mmHg (32.0-45.0); BG PH 7.268 (7.350-7.450); BG SAMPLE SITE LEFT RADIAL; BG TOTAL HEMOGLOBIN 9.1 g/dL (12.0-16.0); BG TOTAL RESPIRATORY RATE 34 b/min
[2024-05-18 14:39] LABS: CLARITY URINE TURBID (CLEAR); COLOR URINE DARK YELLOW (YELLOW); GLUCOSE URINE NEGATIVE (NEGATIVE); KETONES URINE NEGATIVE (NEGATIVE); LEUKOCYTE ESTERASE URINE 3+ (NEGATIVE); NITRITE URINE NEGATIVE (NEGATIVE); OCCULT BLOOD URINE 3+ (NEGATIVE); PROTEIN URINE 4+ (NEGATIVE); SPECIFIC GRAVITY URINE 1.019 (1.005-1.030); UROBILINOGEN URINE 0.2 E.U./dL (0.2-1.0)
[2024-05-18 15:09] LABS: BACTERIA URINE 4+
[2024-05-18 15:10] LABS: YEAST URINE 3+
[2024-05-18 15:11] LABS: WBC URINE TNTC /hpf (0-2)
[2024-05-18 15:12] LABS: RBC URINE 50-100 /hpf (0-2)
[2024-05-18 15:14] LABS: SQUAMOUS EPITHELIAL CELL URINE NONE SEEN /lpf (RARE/1+)
[2024-05-19] VITALS (86 sets, daily range): BP systolic 84–178; BP diastolic 49–146; PULSE 90–116; RESP 21–35; TEMP 36.00288–36.44736; O2SAT 85–100
[2024-05-19] MEDS: MIDODRINE HCL 5MG TABLET GT SCH (08:49)
[2024-05-19 10:41] LABS: BG BASE EXCESS -2.1 mmol/L (-2.0-3.0); BG DEOXYHEMOGLOBIN 6.5 % (0.0-5.0); BG FRACTION INSPIRED OXYGEN 65; BG HCO3 ACT 24.1 mmol/L (21.0-28.0); BG METHEMOGLOBIN 0.3 % (0.5-1.5); BG OXYGEN SATURATION 93.4 % (94.0-98.0); BG OXYHEMOGLOBIN 92.2 % (94.0-98.0); BG PH 7.318 (7.350-7.450); BG PO2 67.6 mmHg (83.0-108.0); BG SAMPLE SITE RIGHT RADIAL; BG TOTAL HEMOGLOBIN 9.2 g/dL (12.0-16.0); BG TOTAL RESPIRATORY RATE 34 b/min; BG VENT MODE VENT - P/C
[2024-05-19 22:05] LABS: HEMATOCRIT. 23.6 % (36.0-48.0); HEMOGLOBIN. 7.8 g/dL (12.0-16.0); MEAN CORPUSCULAR HEMOGLOBIN 30.7 pg (28.0-32.0); MEAN CORPUSCULAR VOLUME 93.2 fL (81.0-99.0); MEAN PLATELET VOLUME 10.2 fl (7.4-10.4); RED BLOOD CELL COUNT 2.53 mill/uL (4.2-5.4); RED CELL DISTRIBUTION WIDTH 15.3 % (11.6-14.6); WHITE BLOOD COUNT 8.9 x1000/uL (4.5-11.0)
[2024-05-19 22:12] LABS: PLATELET 21 x1000/uL (130-400); POTASSIUM 3.2 mEq/L (3.5-5.1)
[2024-05-19 22:13] LABS: DIFFERENTIAL COMMENT 1
[2024-05-19 22:14] LABS: CALCIUM 7.3 mg/dL (8.7-10.4)
[2024-05-19 22:18] LABS: CREATININE 1.6 mg/dL (0.6-1.0)
[2024-05-19 23:23] LABS: PLATELET ESTIMATE MARKEDLY DECREASED
[2024-05-19 23:25] LABS: ANISOCYTOSIS 1+
[2024-05-20] VITALS (64 sets, daily range): BP systolic 73–175; BP diastolic 42–108; PULSE 90–126; RESP 19–35; TEMP 35.94732–36.6696; O2SAT 91–100
[2024-05-20 07:25] LABS: HEMATOCRIT. 22.4 % (36.0-48.0); HEMOGLOBIN. 7.6 g/dL (12.0-16.0); MEAN CORPUSCULAR HGB CONC 33.8 g/dL (31.0-37.0); MEAN CORPUSCULAR VOLUME 91.6 fL (81.0-99.0); MEAN PLATELET VOLUME 9.7 fl (7.4-10.4); RED BLOOD CELL COUNT 2.44 mill/uL (4.2-5.4); RED CELL DISTRIBUTION WIDTH 15.1 % (11.6-14.6); WHITE BLOOD COUNT 7.9 x1000/uL (4.5-11.0)
[2024-05-20 07:32] LABS: CALCIUM 7.4 mg/dL (8.7-10.4)
[2024-05-20 07:37] LABS: CREATININE 1.7 mg/dL (0.6-1.0)
[2024-05-20 08:46] LABS: DIFFERENTIAL COMMENT 1; PLATELET 19 x1000/uL (130-400)
[2024-05-20] MEDS: POTASSIUM CHLORIDE 20MEQ TABLET SR PO NR (08:52)
[2024-05-20 08:53] LABS: PHOSPHORUS 4.3 mg/dL (2.5-4.9)
[2024-05-20] MEDS ORDERED: FLUCONAZOLE 200MG/100ML PREMIX IV ONE (10:30)
[2024-05-20 10:35] LABS: NUCLEATED RED BLOOD CELLS 2 /100 WBC
[2024-05-20 10:37] LABS: PLATELET ESTIMATE MARKEDLY DECREASED
[2024-05-20] MEDS: FLUCONAZOLE 200 MG/100ML BAG 100 ML IV NR (13:03)
[2024-05-20 13:04] LABS: BG BASE EXCESS -4.2 mmol/L (-2.0-3.0); BG CARBOXYHEMOGLOBIN 1.2 % (0.5-1.5); BG DEOXYHEMOGLOBIN 6.3 % (0.0-5.0); BG FRACTION INSPIRED OXYGEN 65; BG HCO3 ACT 22.2 mmol/L (21.0-28.0); BG METHEMOGLOBIN 0.3 % (0.5-1.5); BG OXYGEN SATURATION 93.6 % (94.0-98.0); BG OXYHEMOGLOBIN 92.2 % (94.0-98.0); BG PCO2 47.1 mmHg (32.0-45.0); BG PH 7.291 (7.350-7.450); BG PO2 66.4 mmHg (83.0-108.0); BG SAMPLE SITE RIGHT RADIAL; BG TOTAL HEMOGLOBIN 8.2 g/dL (12.0-16.0); BG VENT MODE VENT - P/C
[2024-05-20] MEDS: MAGNESIUM 1 G PREMIX 100 ML IV NR (17:26)
[2024-05-21] VITALS (95 sets, daily range): BP systolic 67–191; BP diastolic 46–99; PULSE 84–131; RESP 23–36; TEMP 35.94732–36.9474; O2SAT 93–100
[2024-05-21] MEDS: ONDANSETRON HCL 4MG/2ML INJ IV PRN (03:07)
[2024-05-21 05:36] LABS: CALCIUM 7.6 mg/dL (8.7-10.4); CARBON DIOXIDE 23 mEq/L (21-32); CHLORIDE 98 mEq/L (98-107); POTASSIUM 3.4 mEq/L (3.5-5.1); SODIUM 130 mEq/L (136-145)
[2024-05-21 05:41] LABS: CREATININE 1.3 mg/dL (0.6-1.0); GLUCOSE 89 mg/dL (70-105)
[2024-05-21 05:42] LABS: UREA NITROGEN BLOOD 40 mg/dL (9-23)
[2024-05-21 05:44] LABS: PHOSPHORUS 3.8 mg/dL (2.5-4.9)
[2024-05-21 05:59] LABS: HEMATOCRIT. 23.7 % (36.0-48.0); HEMOGLOBIN. 8.2 g/dL (12.0-16.0); MEAN CORPUSCULAR HEMOGLOBIN 31.9 pg (28.0-32.0); MEAN CORPUSCULAR HGB CONC 34.4 g/dL (31.0-37.0); MEAN CORPUSCULAR VOLUME 92.6 fL (81.0-99.0); MEAN PLATELET VOLUME 10.2 fl (7.4-10.4); RED BLOOD CELL COUNT 2.56 mill/uL (4.2-5.4); WHITE BLOOD COUNT 10.5 x1000/uL (4.5-11.0)
[2024-05-21 06:46] LABS: DIFFERENTIAL COMMENT 1
[2024-05-21 08:56] LABS: BG BASE EXCESS -2.1 mmol/L (-2.0-3.0); BG CARBOXYHEMOGLOBIN 0.9 % (0.5-1.5); BG DEOXYHEMOGLOBIN 6.4 % (0.0-5.0); BG FRACTION INSPIRED OXYGEN 60; BG HCO3 ACT 23.5 mmol/L (21.0-28.0); BG METHEMOGLOBIN 0.3 % (0.5-1.5); BG OXYGEN SATURATION 93.5 % (94.0-98.0); BG OXYHEMOGLOBIN 92.4 % (94.0-98.0); BG PCO2 44.4 mmHg (32.0-45.0); BG PH 7.342 (7.350-7.450); BG PO2 61.6 mmHg (83.0-108.0); BG SAMPLE SITE RIGHT RADIAL; BG VENT MODE VENT - P/C
[2024-05-21] MEDS: POTASSIUM CHLORIDE 20MEQ/PACKET PO NR (10:27)
[2024-05-21 16:15] LABS: ANISOCYTOSIS 1+; NUCLEATED RED BLOOD CELLS 2 /100 WBC
[2024-05-21 16:16] LABS: PLATELET 27 x1000/uL (130-400)
[2024-05-21 22:21] LABS: PLATELET ESTIMATE MARKEDLY DECREASED
[2024-05-22] VITALS (88 sets, daily range): BP systolic 84–145; BP diastolic 47–84; PULSE 89–109; RESP 23–35; TEMP 35.94732–37.00296; O2SAT 90–100
[2024-05-22 04:56] LABS: HEMATOCRIT. 21.5 % (36.0-48.0); HEMOGLOBIN. 7.3 g/dL (12.0-16.0); MEAN CORPUSCULAR HEMOGLOBIN 31.4 pg (28.0-32.0); MEAN CORPUSCULAR HGB CONC 34.1 g/dL (31.0-37.0); MEAN CORPUSCULAR VOLUME 92.1 fL (81.0-99.0); MEAN PLATELET VOLUME 9.3 fl (7.4-10.4); RED BLOOD CELL COUNT 2.33 mill/uL (4.2-5.4); RED CELL DISTRIBUTION WIDTH 14.9 % (11.6-14.6); WHITE BLOOD COUNT 10.3 x1000/uL (4.5-11.0)
[2024-05-22 05:01] LABS: POTASSIUM 3.6 mEq/L (3.5-5.1)
[2024-05-22 05:03] LABS: CALCIUM 7.3 mg/dL (8.7-10.4)
[2024-05-22 05:07] LABS: CREATININE 1.4 mg/dL (0.6-1.0)
[2024-05-22 05:42] LABS: DIFFERENTIAL COMMENT 1
[2024-05-22 08:53] LABS: NUCLEATED RED BLOOD CELLS 2 /100 WBC
[2024-05-22 08:54] LABS: PLATELET 20 x1000/uL (130-400); PLATELET ESTIMATE MARKEDLY DECREASED
[2024-05-22] MEDS ORDERED: MIDODRINE HCL 5MG TABLET GT SCH (13:00)
[2024-05-22] MEDS: MIDODRINE HCL 5MG TABLET GT SCH (14:45)
[2024-05-23] VITALS (72 sets, daily range): BP systolic 91–177; BP diastolic 59–115; PULSE 90–115; RESP 18–37; TEMP 35.72508–37.2252; O2SAT 9–98
[2024-05-23 05:39] LABS: HEMATOCRIT 21.5 % (36.0-48.0); HEMOGLOBIN 7.4 g/dL (12.0-16.0); MEAN CORPUSCULAR HEMOGLOBIN 31.2 pg (28.0-32.0); MEAN CORPUSCULAR HGB CONC 34.2 g/dL (31.0-37.0); MEAN CORPUSCULAR VOLUME 91.3 fL (81.0-99.0); RED BLOOD CELL COUNT 2.36 mill/uL (4.2-5.4); RED CELL DISTRIBUTION WIDTH 15.1 % (11.6-14.6); WHITE BLOOD COUNT 10.7 x1000/uL (4.5-11.0)
[2024-05-23 05:43] LABS: POTASSIUM 2.9 mEq/L (3.5-5.1)
[2024-05-23 05:44] LABS: CALCIUM 7.3 mg/dL (8.7-10.4)
[2024-05-23 05:48] LABS: PLATELET 18 x1000/uL (130-400)
[2024-05-23 05:49] LABS: CREATININE 1.2 mg/dL (0.6-1.0)
[2024-05-23] MEDS: POTASSIUM CHLORIDE 20MEQ/PACKET PO NR (09:51)
[2024-05-23] MEDS: MENTHOL/LANOLIN/CALAMINE/ZN OX OINT 71GM TOP SCH (13:13)
[2024-05-23] MEDS: NYSTATIN 100,000 UNITS/GM CREAM 15GM TOP SCH (13:13)
[2024-05-24] VITALS (33 sets, daily range): BP systolic 69–154; BP diastolic 50–95; PULSE 74–104; RESP 17–37; TEMP 35.61396–36.44736; O2SAT 91–100
[2024-05-24 10:24] LABS: HEMATOCRIT. 23.7 % (36.0-48.0); HEMOGLOBIN. 7.9 g/dL (12.0-16.0); MEAN CORPUSCULAR HEMOGLOBIN 30.7 pg (28.0-32.0); MEAN CORPUSCULAR HGB CONC 33.4 g/dL (31.0-37.0); MEAN CORPUSCULAR VOLUME 91.9 fL (81.0-99.0); MEAN PLATELET VOLUME 9.4 fl (7.4-10.4); RED BLOOD CELL COUNT 2.58 mill/uL (4.2-5.4); RED CELL DISTRIBUTION WIDTH 15.3 % (11.6-14.6)
[2024-05-24 10:30] LABS: POTASSIUM 3.4 mEq/L (3.5-5.1)
[2024-05-24 10:31] LABS: CALCIUM 7.4 mg/dL (8.7-10.4)
[2024-05-24 10:35] LABS: CREATININE 1.4 mg/dL (0.6-1.0)
[2024-05-24 10:55] LABS: DIFFERENTIAL COMMENT 1
[2024-05-25] VITALS: BP 131/76; PULSE 94; RESP 36; TEMP 36.55848; O2SAT 94
[2024-05-25 00:24] VITALS: PULSE 94; RESP 34; O2SAT 98
[2024-05-25 11:20] LABS: ANISOCYTOSIS 1+; NUCLEATED RED BLOOD CELLS 1 /100 WBC; PLATELET ESTIMATE MARKEDLY DECREASED
[2024-05-25 11:21] LABS: PLATELET 18 x1000/uL (130-400)
== END 2024-05-25 02:30 | DRG 4 ==
LOC: ER 17:28 → EDBEDREQ 17:54 → 5WST 19:28 → EDBEDREQTM 19:44 → EDBEDREQ 19:44 → EDBEDREQSVC 19:44 → 7EST 04-12 12:52 → CVICU 04-14 11:32 → 5EST 05-23 16:30
PROVIDERS: ADMIT Internal Medicine; ATTEND Internal Medicine
PROC: 5A09457 Assistance with Respiratory Ventilation, 24-96 Consecutive Hours, Continuous Positive Airway Pressure (ICD-10-PCS; 2024-04-14)
PROC: 5A1955Z Respiratory Ventilation, Greater than 96 Consecutive Hours (ICD-10-PCS; 2024-04-15)
PROC: 0BH17EZ Insertion of Endotracheal Airway into Trachea, Via Natural or Artificial Opening (ICD-10-PCS; 2024-04-15)
PROC: 02H633Z Insertion of Infusion Device into Right Atrium, Percutaneous Approach (ICD-10-PCS; 2024-04-15)
PROC: B548ZZA Ultrasonography of Superior Vena Cava, Guidance (ICD-10-PCS; 2024-04-15)
PROC: 30233N1 Transfusion of Nonautologous Red Blood Cells into Peripheral Vein, Percutaneous Approach (ICD-10-PCS; 2024-04-16)
PROC: 5A1D70Z Performance of Urinary Filtration, Intermittent, Less than 6 Hours Per Day (ICD-10-PCS; 2024-04-16)
PROC: 5A1D70Z Performance of Urinary Filtration, Intermittent, Less than 6 Hours Per Day (ICD-10-PCS; 2024-04-18)
PROC: 5A1D70Z Performance of Urinary Filtration, Intermittent, Less than 6 Hours Per Day (ICD-10-PCS; 2024-04-20)
PROC: 5A1D70Z Performance of Urinary Filtration, Intermittent, Less than 6 Hours Per Day (ICD-10-PCS; 2024-04-21)
PROC: 5A1D70Z Performance of Urinary Filtration, Intermittent, Less than 6 Hours Per Day (ICD-10-PCS; 2024-04-22)
PROC: 30233R1 Transfusion of Nonautologous Platelets into Peripheral Vein, Percutaneous Approach (ICD-10-PCS; 2024-04-24)
PROC: 5A1D70Z Performance of Urinary Filtration, Intermittent, Less than 6 Hours Per Day (ICD-10-PCS; 2024-04-25)
PROC: 5A1D70Z Performance of Urinary Filtration, Intermittent, Less than 6 Hours Per Day (ICD-10-PCS; 2024-04-27)
PROC: 5A1D70Z Performance of Urinary Filtration, Intermittent, Less than 6 Hours Per Day (ICD-10-PCS; 2024-04-29)
PROC: 5A1D70Z Performance of Urinary Filtration, Intermittent, Less than 6 Hours Per Day (ICD-10-PCS; 2024-05-01)
PROC: 5A1D70Z Performance of Urinary Filtration, Intermittent, Less than 6 Hours Per Day (ICD-10-PCS; 2024-05-03)
PROC: 0B110F4 Bypass Trachea to Cutaneous with Tracheostomy Device, Open Approach (ICD-10-PCS; principal; 2024-05-06)
PROC: 5A1D70Z Performance of Urinary Filtration, Intermittent, Less than 6 Hours Per Day (ICD-10-PCS; 2024-05-07)
PROC: 5A1D70Z Performance of Urinary Filtration, Intermittent, Less than 6 Hours Per Day (ICD-10-PCS; 2024-05-07)
PROC: 5A1D70Z Performance of Urinary Filtration, Intermittent, Less than 6 Hours Per Day (ICD-10-PCS; 2024-05-07)
PROC: 5A1D70Z Performance of Urinary Filtration, Intermittent, Less than 6 Hours Per Day (ICD-10-PCS; 2024-05-09)
PROC: 5A1D70Z Performance of Urinary Filtration, Intermittent, Less than 6 Hours Per Day (ICD-10-PCS; 2024-05-11)
PROC: 5A1D70Z Performance of Urinary Filtration, Intermittent, Less than 6 Hours Per Day (ICD-10-PCS; 2024-05-13)
PROC: 5A1D70Z Performance of Urinary Filtration, Intermittent, Less than 6 Hours Per Day (ICD-10-PCS; 2024-05-15)
PROC: 5A1D70Z Performance of Urinary Filtration, Intermittent, Less than 6 Hours Per Day (ICD-10-PCS; 2024-05-17)
PROC: 5A1D70Z Performance of Urinary Filtration, Intermittent, Less than 6 Hours Per Day (ICD-10-PCS; 2024-05-20)
PROC: 5A1D70Z Performance of Urinary Filtration, Intermittent, Less than 6 Hours Per Day (ICD-10-PCS; 2024-05-22)
PROC: 5A1D70Z Performance of Urinary Filtration, Intermittent, Less than 6 Hours Per Day (ICD-10-PCS; 2024-05-24)
DX: A41.9 Sepsis, unspecified organism (principal); I50.33 Acute on chronic diastolic (congestive) heart failure; J96.01 Acute respiratory failure with hypoxia; N17.0 Acute kidney failure with tubular necrosis; L89.153 Pressure ulcer of sacral region, stage 3; R65.21 Severe sepsis with septic shock; D65 Disseminated intravascular coagulation [defibrination syndrome]; G93.41 Metabolic encephalopathy; J18.9 Pneumonia, unspecified organism; K56.0 Paralytic ileus; E87.21 Acute metabolic acidosis; I13.0 Hypertensive heart and chronic kidney disease with heart failure and stage 1 through stage 4 chronic kidney disease, or unspecified chronic kidney disease; N39.0 Urinary tract infection, site not specified; E87.1 Hypo-osmolality and hyponatremia; E87.29 Other acidosis; K92.2 Gastrointestinal hemorrhage, unspecified; Z99.11 Dependence on respirator [ventilator] status; J91.8 Pleural effusion in other conditions classified elsewhere; E11.22 Type 2 diabetes mellitus with diabetic chronic kidney disease; F03.90 Unspecified dementia, unspecified severity, without behavioral disturbance, psychotic disturbance, mood disturbance, and anxiety; R13.10 Dysphagia, unspecified; N18.9 Chronic kidney disease, unspecified; Z20.822 Contact with and (suspected) exposure to COVID-19; I35.0 Nonrheumatic aortic (valve) stenosis; D63.1 Anemia in chronic kidney disease; E83.42 Hypomagnesemia; E87.6 Hypokalemia; E11.65 Type 2 diabetes mellitus with hyperglycemia; R62.7 Adult failure to thrive; N85.2 Hypertrophy of uterus; E87.5 Hyperkalemia; Z93.1 Gastrostomy status; Z79.4 Long term (current) use of insulin; Z88.8 Allergy status to other drugs, medicaments and biological substances; Z79.899 Other long term (current) drug therapy; Y95 Nosocomial condition
CPT/HCPCS: 31500; 36415; 36556; 36600; 71045; 74018; 74177; 76770; 77001; 80048; 80053; 81003; 82040; 82375; 82550; 82570; 82805; 82962; 83036; 83605; 83615; 83735; 83880; 84100; 84134; 84145; 84156; 84478; 84484; 85014; 85018; 85025; 85027; 85044; 85049; 85384; 86022; 86038; 86705; 86709; 86850; 86880; 86900; 86920; 87070; 87106; 87340; 87426; 87804; 90935; 93005; 93306; 93970; 94002; 94003; 94640; 94660; 99291; A6261; C1752; J0360; J0456; J0692; J0696; J1450; J1815; J1940; J2060; J2185; J2270; J2405; J2470; J2597; J2704; J2919; J2920; J3010; J3370; J3475; J3480; J3490; J7050; J7060; J7070; P9016; P9034; Q9957; Q9967